=== PATIENT | female | born 1935 | race Native Hawaiian/Other Pacific Islander ===

== ENCOUNTER 2019-08-29 10:09 | Emergency (ER) | payer OTHER, SELFPAY ==
[2019-08-29 11:20] VITALS: BP 205/76; PULSE 60; RESP 18; TEMP 36.6; O2SAT 98
[2019-08-29 11:44] LABS: Prothrombin Time 11.1 SECONDS (10.1-12.7)
[2019-08-29 11:47] LABS: PTT Partial Thromboplastin Tim 34 SECONDS (26.4-36.2)
[2019-08-29 11:50] LABS: Alanine Aminotransferase 28 IU/L (<35); Albumin 4.6 g/dL (3.5-5.0); Albumin Globulin Ratio 1.3 (1.0-2.8); Alkaline Phosphatase 99 U/L (38-126); Aspartate Aminotransferase 37 IU/L (14-36); BUN Creatinine Ratio 21.7 (6-22); Bilirubin Total 0.5 mg/dL (0.2-1.3); Blood Urea Nitrogen 13 mg/dL (7-17); Calcium 9.6 mg/dL (8.4-10.2); Carbon Dioxide 27 mmol/L (22-32); Chloride 98 mmol/L (98-107); Estimated Glomerular Filt Rate > 60.0 mL/min (>60); Globulin 3.5 g/dL (1.7-4.1); Glucose 106 mg/dL (80-110); HEMOLYSIS < 15 (0-50); Lipase 43 U/L (23-300); Potassium 4.1 mmol/L (3.4-5.1); Sodium 135 mmol/L (137-145); Total Protein 8.1 g/dL (6.3-8.2)
[2019-08-29 12:00] LABS: Add Manual Diff / Slide Review NO; Basophils Absolute Auto 0 /uL (0-100); Basophils Percent Auto 0.8 % (0-2); Eosinophils Absolute Auto 100 /uL (0-450); Eosinophils Percent Auto 1.2 % (2-4); Hematocrit 37.7 % (36-46); Hemoglobin 12.3 g/dL (12.0-16.0); Lymphocytes Absolute Auto 2600 /uL (1100-4500); Lymphocytes Percent Auto 46.4 % (25-40); Mean Corpuscular HGB Conc 32.6 % (30-36); Mean Corpuscular Hemoglobin 28.4 PG (26-34); Mean Corpuscular Volume 86.9 fL (80-100); Monocytes Absolute Auto 300 /uL (0-900); Monocytes Percent Auto 6.1 % (3-14); Neutrophils Absolute Auto 2600 /uL (1500-7000); Neutrophils Percent Auto 45.5 % (50-75); Platelet Count 195 X10^3/uL (150-400); Red Blood Cell Count 4.34 X10^6/uL (4.0-5.2); Red Cell Distribution Width 12.9 % (11.6-14.8); White Blood Cell Count 5.6 X10^3/uL (4.5-11.0)
--- NOTE | 2019-08-29 12:06 | ED.ABDPAIN ---
HPI - Abdominal Pain <Ashley QuinteroDANETTE - Last Filed: 08/29/19 18:52> General Chief Complaint: Abdominal Pain Stated Complaint: pain in side,numbness on right side too Time Seen by Provider: 08/29/19 11:28 Source: patient Mode of arrival: Family Vehicle Limitations: no limitations History of Present Illness HPI narrative: 84-year-old female with history of diabetes, presents emergency department complaining of right hip pain and numbness for the past week. Her family states she lifted a 5 gal jug of water a week ago and then developed right hip pain that is a dull aching 6/10 and is worse with lying down. Patient reports a small amount of numbness to the lateral side of her right hip. She also reports occasional right intermittent hip spasms. She denies any trauma to the area. Patient denies nausea, vomiting, diarrhea, chest pain, shortness of breath, fevers, dizziness, leg pain, rash, other concerns. She denies any alleviating factors. Family states she was seen by her doctor a few days ago who thought she may have had a pulled muscle but is concern that no imaging was done. Patient denies any history of sciatica. Related Data Home Medications Medication Instructions Recorded Confirmed cholecalciferol (vitamin D3) 1,000 unit PO QDAY #0 08/14/17 [Vitamin D3] lisinopril 5 mg PO QDAY #0 08/14/17 metformin [Glucophage] 500 mg PO QDAY #0 08/14/17 metoprolol succinate [Toprol XL] 25 mg PO QPM #0 08/14/17 multivitamin [Multiple Vitamins] 1 tab PO QDAY #0 08/14/17 cetirizine 10 mg PO QDAYP PRN #0 10/16/17 Previous Rx's Medication Instructions Recorded meclizine 25 mg PO TIDP PRN #20 tab 10/16/17 ondansetron [Zofran ODT] 4 mg SUBLINGUAL Q6HP PRN #10 odt 10/16/17 methocarbamol 500 mg PO BEDTIME #10 tab 08/29/19 Allergies Allergy/AdvReac Type Severity Reaction Status Date / Time aspirin [ASPIRIN] Allergy Unknown RASH Verified 08/29/19 11:36 nalbuphine [From NUBAIN] Allergy Unknown CONVULSIONS Verified 08/29/19 11:36 Sulfa (Sulfonamide Allergy Unknown RASH Verified 08/29/19 11:36 Antibiotics) [SULFA (SULFONAMIDE ANTIBIOTICS)] Review of Systems <DANETTE Jacobson - Last Filed: 08/29/19 18:52> Review of Systems Narrative: REVIEW OF SYSTEMS: GENERAL: Denies fever, chills, malaise, or wt. loss. HENT: No head trauma, sore throat, or dysphagia. EYES: No loss of vision, double vision, eye pain, or irritation. CARDIOVASCULAR: No chest pain, palpitations, or orthopnea. RESPIRATORY: No shortness of breath or cough. GASTROINTESTINAL: Denies nausea, vomiting, or diarrhea, see HPI. GENITOURINARY: No flank pain, urinary incontinence, hesitancy, frequency, or dysuria. No vaginal discharge or dyspareunia. Denies concerns for STIs MUSCULOSKELETAL: Right hip pain and numbness, no weakness or trauma, see HPI. INTEGUMENTARY: No rash, lesions, or pruritus. NEURO: No numbness, tingling, memory loss, confusion, or headaches. PSYCH: No behavior or mood changes. Patient History <DANETTE Jacobson - Last Filed: 08/29/19 18:52> Medical History Diabetes (Acute) Social History Smoking Status: Never smoker alcohol intake frequency: 0-2 drinks per day Substance Use Type: does not use Exam <DANETTE Jacobson - Last Filed: 08/29/19 18:52> Narrative Exam Narrative: PHYSICAL EXAMINATION: GENERAL: Well groomed, alert, and cooperative. Answers questions promptly and appropriately. Vital signs noted. HENT: Normocephalic, atraumatic. Hearing intact. Oral mucosa is pink and moist. EYES: Conjunctiva pink, sclera white, no periorbital swelling. CARDIOVASCULAR: S1 and S2 sounds normal. Regular rate and rhythm, no murmurs, clicks, or bruits. No pedal edema. RESPIRATORY: Normal respiratory rate, trachea midline, airway patent. No stridor, nasal flaring or accessory muscle use. Lungs are clear in all pierce without wheeze, rhonchi, or crackles. GASTROINTESTINAL: Bowel sounds normoactive. Abdomen is soft and non-tender. No organomegaly, no palpable masses. GENITALURINARY: No flank tenderness. MUSCULOSKELETAL: Tenderness to top right iliac crest with deep palpation. Negative straight leg raise. No erythema, ecchymosis, or swelling. No spinal tenderness. Normal gait and coordination. Equal tone and mass bilaterally. EXTREMITIES: CMS intact, no pedal edema. SKIN: Warm, dry, soft, appropriate color for ethnicity. No lesions, rashes, or wounds. NEURO: Alert and Oriented X 3. Good coordination. No ataxia, or sensory deficits, or cognitive issues. PSYCH: Appropriate affect and mood. Initial Vital Signs Initial Vital Signs: Vital Signs Temperature 97.9 F 08/29/19 11:20 Pulse Rate 60 08/29/19 11:20 Respiratory Rate 18 08/29/19 11:20 Blood Pressure 205/76 H 08/29/19 11:20 Pulse Oximetry 98 08/29/19 11:20 <Yoli Keene DO - Last Filed: 08/29/19 20:20> Initial Vital Signs Initial Vital Signs: Vital Signs Temperature 97.9 F 08/29/19 11:20 Pulse Rate 60 08/29/19 11:20 Respiratory Rate 18 08/29/19 11:20 Blood Pressure 205/76 H 08/29/19 11:20 Pulse Oximetry 98 08/29/19 11:20 Course <DANETTE Jacobson - Last Filed: 08/29/19 18:52> Course Course Narrative: Patient was given a toradol injection in the emergency department which improved pain. Orders Ordered: ED Orders 08/29/19 11:21 Complete Blood Count AUTO DIFF Stat Comprehensive Metabolic Panel Stat Lipase Stat Partial Thromboplastin Time Stat Prothrombin Time INR Stat 08/29/19 11:30 Urinalysis and Microscopic Stat 08/29/19 11:36 EKG-12 Lead Stat 08/29/19 12:05 XR hip w pel if done RT 2V Stat Discontinued Medications Ketorolac Tromethamine (Toradol) 30 mg IM NOW ONE Stop: 08/29/19 13:24 Last Admin: 08/29/19 14:20 Dose: 30 mg Documented by: [facility] Consultations Consultation #1: Patient staffed with Dr. Keene. Vital Signs Vital signs: Vital Signs - 8 hr 08/29/19 13:30 Pulse Rate 58 L Respiratory Rate 18 Blood Pressure [Left Arm] 136/71 Pulse Oximetry 97 <Yoli Keene DO - Last Filed: 08/29/19 20:20> Orders Ordered: ED Orders 08/29/19 11:21 Complete Blood Count AUTO DIFF Stat Comprehensive Metabolic Panel Stat Lipase Stat Partial Thromboplastin Time Stat Prothrombin Time INR Stat 08/29/19 11:30 Urinalysis and Microscopic Stat 08/29/19 11:36 EKG-12 Lead Stat 08/29/19 12:05 XR hip w pel if done RT 2V Stat Discontinued Medications Ketorolac Tromethamine (Toradol) 30 mg IM NOW ONE Stop: 08/29/19 13:24 Last Admin: 08/29/19 14:20 Dose: 30 mg Documented by: THIAGO Vital Signs Vital signs: Vital Signs - 8 hr 08/29/19 13:30 Pulse Rate 58 L Respiratory Rate 18 Blood Pressure [Left Arm] 136/71 Pulse Oximetry 97 MDM - Abdominal Pain <DANETTE Jacobson - Last Filed: 08/29/19 18:52> Medical Records Attestation: I reviewed the patient's medical records. Lab Data Attestation: I reviewed the patient's lab results. Result diagrams: 08/29/19 11:21 08/29/19 11:21 Labs: Lab Results 08/29/19 08/29/19 08/29/19 Range/Units 11:21 11:21 11:21 WBC 5.6 (4.5-11.0) X10^3/uL RBC 4.34 (4.0-5.2) X10^6/uL Hgb 12.3 (12.0-16.0) g/dL Hct 37.7 (36-46) % MCV 86.9 (80-100) fL MCH 28.4 (26-34) PG MCHC 32.6 (30-36) % RDW 12.9 (11.6-14.8) % Plt Count 195 (150-400) X10^3/uL Neut % (Auto) 45.5 L (50-75) % Lymph % (Auto) 46.4 H (25-40) % Christian % (Auto) 6.1 (3-14) % Eos % (Auto) 1.2 L (2-4) % Baso % (Auto) 0.8 (0-2) % Neut # (Auto) 2600 (0180-7519) /uL Lymph # (Auto) 2600 (8168-0034) /uL Christian # (Auto) 300 (0-900) /uL Eos # (Auto) 100 (0-450) /uL Baso # (Auto) 0 (0-100) /uL PT 11.1 (10.1-12.7) SECONDS INR 1.0 (0.9-1.3) APTT 34 (26.4-36.2) SECONDS Sodium 135 L (137-145) mmol/L Potassium 4.1 (3.4-5.1) mmol/L Chloride 98 (98-107) mmol/L Carbon Dioxide 27 (22-32) mmol/L BUN 13 (7-17) mg/dL Creatinine 0.60 (0.52-1.04) mg/dL Estimated GFR > 60.0 (>60) mL/min BUN/Creatinine Ratio 21.7 (6-22) Glucose 106 (80-110) mg/dL Calcium 9.6 (8.4-10.2) mg/dL Total Bilirubin 0.5 (0.2-1.3) mg/dL AST 37 H (14-36) IU/L ALT 28 (<35) IU/L Alkaline Phosphatase 99 (38-126) U/L Total Protein 8.1 (6.3-8.2) g/dL Albumin 4.6 (3.5-5.0) g/dL Globulin 3.5 (1.7-4.1) g/dL Albumin/Globulin Ratio 1.3 (1.0-2.8) Lipase 43 (23-300) U/L Urine Color Urine Appearance Urine pH (4.5-8.0) Ur Specific [place] (1.000-1.035) Urine Protein (Negative) Urine Glucose (UA) (Negative) g/dL Urine Ketones (NEGATIVE) Urine Occult Blood (Negative) Urine Nitrate (Negative) Urine Bilirubin (NEGATIVE) Urine Urobilinogen (0.2) E.U./dL Ur Leukocyte Esterase (NEGATIVE) Urine RBC (0-5/HPF) Urine WBC (0-5/HPF) Ur Squamous Epith Cells (0-5/HPF) Urine Bacteria (None) Ur Culture Indicated? 08/29/19 Range/Units 11:30 WBC (4.5-11.0) X10^3/uL RBC (4.0-5.2) X10^6/uL Hgb (12.0-16.0) g/dL Hct (36-46) % MCV (80-100) fL MCH (26-34) PG MCHC (30-36) % RDW (11.6-14.8) % Plt Count (150-400) X10^3/uL Neut % (Auto) (50-75) % Lymph % (Auto) (25-40) % Christian % (Auto) (3-14) % Eos % (Auto) (2-4) % Baso % (Auto) (0-2) % Neut # (Auto) (6324-3321) /uL Lymph # (Auto) (3407-8220) /uL Christian # (Auto) (0-900) /uL Eos # (Auto) (0-450) /uL Baso # (Auto) (0-100) /uL PT (10.1-12.7) SECONDS INR (0.9-1.3) APTT (26.4-36.2) SECONDS Sodium (137-145) mmol/L Potassium (3.4-5.1) mmol/L Chloride (98-107) mmol/L Carbon Dioxide (22-32) mmol/L BUN (7-17) mg/dL Creatinine (0.52-1.04) mg/dL Estimated GFR (>60) mL/min BUN/Creatinine Ratio (6-22) Glucose (80-110) mg/dL Calcium (8.4-10.2) mg/dL Total Bilirubin (0.2-1.3) mg/dL AST (14-36) IU/L ALT (<35) IU/L Alkaline Phosphatase (38-126) U/L Total Protein (6.3-8.2) g/dL Albumin (3.5-5.0) g/dL Globulin (1.7-4.1) g/dL Albumin/Globulin Ratio (1.0-2.8) Lipase (23-300) U/L Urine Color Yellow Urine Appearance Clear Urine pH 6.5 (4.5-8.0) Ur Specific [place] <=1.005 (1.000-1.035) Urine Protein Negative (Negative) Urine Glucose (UA) Negative (Negative) g/dL Urine Ketones Negative (NEGATIVE) Urine Occult Blood Trace-intact (Negative) Urine Nitrate Negative (Negative) Urine Bilirubin Negative (NEGATIVE) Urine Urobilinogen 0.2 (0.2) E.U./dL Ur Leukocyte Esterase Negative (NEGATIVE) Urine RBC 1-5/hpf (0-5/HPF) Urine WBC 0-1/hpf (0-5/HPF) Ur Squamous Epith Cells 0-1 /hpf (0-5/HPF) Urine Bacteria Occasional (0-1) (None) Ur Culture Indicated? Cult not indicated Point of care testing: Urine Dip Bedside Urine Glucose Negative Bedside Urine Bilirubin - Negative Bedside Urine Ketone - Negative Urine Specific [place] 1.010 Bedside Urine Occult Blood +/- Bedside Urine pH 6.0 Bedside Urine Protein - Negative Bedside Urine Urobilinogen - Negative Bedside Urine Nitrite - Negative Bedside Urine Leukocytes - Negative Esterase Imaging Data Hip Xray: Radiologist's impression: [address] [address] XRay Report Signed Patient: Nadia Aldridge CMR#: [id number] : [id number]:[id number] Age/Sex: 84 / FDate of Service: 08/29/19 Loc: ED Accession Number: [id number] Procedure: XR hip w pel if done RT 2V Ordering Provider: Ashley Quintero PROCEDURE: XR HIP W PEL IF DONE RT 2V INDICATIONS: R hip pain TECHNIQUE: AP pelvis with lateral view(s) of the right hip(s). COMPARISON: None. FINDINGS: Bones: No fractures or dislocations. Pelvic ring appears intact. No suspicious bony lesions. The hip joints appear well-preserved. Age-appropriate lower lumbar spine degenerative changes are noted. Soft tissues: The visualized bowel gas pattern is normal. No suspicious soft tissue calcifications. IMPRESSION: Normal plain films for age. Dictated by: Parker Olivas M.D. on 08/29/2019 at 11:40 Approved by: Parker Olivas M.D. on 08/29/2019 at 11:41 ECG Data Interpretation: Sinus rhythm, rate 56 him appearance of a wound 76, QTC 447. No ST depression or ST elevation no T-wave abnormality. No ectopy. Questionable RRB in V1 and V2. MDM Narrative Medical decision making narrative: This is an 84-year-old female complaining of right hip pain for the past week, she was recently seen by PCP and diagnosed with muscle strain. Differential includes abdominal etiology, shingles, hip fracture, or hip strain. Most likely hip strain with possible pinched nerve or nerve irritation due to description of pain, reproducible pain on palpation. Less likely abdominal etiology or cardiac etiology due to normal EKG and normal labs. Less likely hip fracture due to negative x-ray and patient's ability to bear weight on the leg. Less likely shingles due to lack of rash or description of tingling. Patient was encouraged to follow up with her primary care provider in the next week for re-evaluation if symptoms continue. She was given a dose of Toradol which helped to improve pain in the emergency department. She was also given a low-dose muscle relaxer as she reports the pain is occasionally spasming. Patient remained hemodynamically stable throughout her stay in the emergency department, she was discharged with family with no further questions at that time. <Yoli Keene, DO - Last Filed: 08/29/19 20:20> Lab Data Labs: Lab Results 08/29/19 08/29/19 08/29/19 Range/Units 11:21 11:21 11:21 WBC 5.6 (4.5-11.0) X10^3/uL RBC 4.34 (4.0-5.2) X10^6/uL Hgb 12.3 (12.0-16.0) g/dL Hct 37.7 (36-46) % MCV 86.9 (80-100) fL MCH 28.4 (26-34) PG MCHC 32.6 (30-36) % RDW 12.9 (11.6-14.8) % Plt Count 195 (150-400) X10^3/uL Neut % (Auto) 45.5 L (50-75) % Lymph % (Auto) 46.4 H (25-40) % Christian % (Auto) 6.1 (3-14) % Eos % (Auto) 1.2 L (2-4) % Baso % (Auto) 0.8 (0-2) % Neut # (Auto) 2600 (2066-3282) /uL Lymph # (Auto) 2600 (6656-0564) /uL Christian # (Auto) 300 (0-900) /uL Eos # (Auto) 100 (0-450) /uL Baso # (Auto) 0 (0-100) /uL PT 11.1 (10.1-12.7) SECONDS INR 1.0 (0.9-1.3) APTT 34 (26.4-36.2) SECONDS Sodium 135 L (137-145) mmol/L Potassium 4.1 (3.4-5.1) mmol/L Chloride 98 (98-107) mmol/L Carbon Dioxide 27 (22-32) mmol/L BUN 13 (7-17) mg/dL Creatinine 0.60 (0.52-1.04) mg/dL Estimated GFR > 60.0 (>60) mL/min BUN/Creatinine Ratio 21.7 (6-22) Glucose 106 (80-110) mg/dL Calcium 9.6 (8.4-10.2) mg/dL Total Bilirubin 0.5 (0.2-1.3) mg/dL AST 37 H (14-36) IU/L ALT 28 (<35) IU/L Alkaline Phosphatase 99 (38-126) U/L Total Protein 8.1 (6.3-8.2) g/dL Albumin 4.6 (3.5-5.0) g/dL Globulin 3.5 (1.7-4.1) g/dL Albumin/Globulin Ratio 1.3 (1.0-2.8) Lipase 43 (23-300) U/L Urine Color Urine Appearance Urine pH (4.5-8.0) Ur Specific [place] (1.000-1.035) Urine Protein (Negative) Urine Glucose (UA) (Negative) g/dL Urine Ketones (NEGATIVE) Urine Occult Blood (Negative) Urine Nitrate (Negative) Urine Bilirubin (NEGATIVE) Urine Urobilinogen (0.2) E.U./dL Ur Leukocyte Esterase (NEGATIVE) Urine RBC (0-5/HPF) Urine WBC (0-5/HPF) Ur Squamous Epith Cells (0-5/HPF) Urine Bacteria (None) Ur Culture Indicated? 08/29/19 Range/Units 11:30 WBC (4.5-11.0) X10^3/uL RBC (4.0-5.2) X10^6/uL Hgb (12.0-16.0) g/dL Hct (36-46) % MCV (80-100) fL MCH (26-34) PG MCHC (30-36) % RDW (11.6-14.8) % Plt Count (150-400) X10^3/uL Neut % (Auto) (50-75) % Lymph % (Auto) (25-40) % Christian % (Auto) (3-14) % Eos % (Auto) (2-4) % Baso % (Auto) (0-2) % Neut # (Auto) (7788-2887) /uL Lymph # (Auto) (6569-2710) /uL Christian # (Auto) (0-900) /uL Eos # (Auto) (0-450) /uL Baso # (Auto) (0-100) /uL PT (10.1-12.7) SECONDS INR (0.9-1.3) APTT (26.4-36.2) SECONDS Sodium (137-145) mmol/L Potassium (3.4-5.1) mmol/L Chloride (98-107) mmol/L Carbon Dioxide (22-32) mmol/L BUN (7-17) mg/dL Creatinine (0.52-1.04) mg/dL Estimated GFR (>60) mL/min BUN/Creatinine Ratio (6-22) Glucose (80-110) mg/dL Calcium (8.4-10.2) mg/dL Total Bilirubin (0.2-1.3) mg/dL AST (14-36) IU/L ALT (<35) IU/L Alkaline Phosphatase (38-126) U/L Total Protein (6.3-8.2) g/dL Albumin (3.5-5.0) g/dL Globulin (1.7-4.1) g/dL Albumin/Globulin Ratio (1.0-2.8) Lipase (23-300) U/L Urine Color Yellow Urine Appearance Clear Urine pH 6.5 (4.5-8.0) Ur Specific [place] <=1.005 (1.000-1.035) Urine Protein Negative (Negative) Urine Glucose (UA) Negative (Negative) g/dL Urine Ketones Negative (NEGATIVE) Urine Occult Blood Trace-intact (Negative) Urine Nitrate Negative (Negative) Urine Bilirubin Negative (NEGATIVE) Urine Urobilinogen 0.2 (0.2) E.U./dL Ur Leukocyte Esterase Negative (NEGATIVE) Urine RBC 1-5/hpf (0-5/HPF) Urine WBC 0-1/hpf (0-5/HPF) Ur Squamous Epith Cells 0-1 /hpf (0-5/HPF) Urine Bacteria Occasional (0-1) (None) Ur Culture Indicated? Cult not indicated Point of care testing: Urine Dip Bedside Urine Glucose Negative Bedside Urine Bilirubin - Negative Bedside Urine Ketone - Negative Urine Specific [place] 1.010 Bedside Urine Occult Blood +/- Bedside Urine pH 6.0 Bedside Urine Protein - Negative Bedside Urine Urobilinogen - Negative Bedside Urine Nitrite - Negative Bedside Urine Leukocytes - Negative Esterase ECG Data Attestation: I personally reviewed and interpreted this ECG as follows: Prior ECG tracings: available for review Interpretation: Sinus bradycardia rate of 56 P are 176 QRS of 97 QTC of 447. RSR in V1 V2. No acute changes. Patient has prior EKG from 10/16/2017 which is similar. Discharge Plan Departure Patient Disposition: Home Clinical Impression: Acute hip pain Qualifiers: Laterality: right Qualified Code(s): M25.551 - Pain in right hip Discharge Date/Time: 08/29/19 14:23 Instructions: DI for Sciatica, DI for Hip Pain Activity Restrictions/Additional Instructions: Thank you for entrusting me with your care today. As discussed, your x-rays are negative for any fractures, your lab work is negative for any acute findings. Please follow-up with your primary care provider for re-evaluation of your hip pain and continue to monitor your sodium level as it was a little low today. You can take Tylenol or ibuprofen for pain It is possible your pain may be caused from a pinched nerve and or muscle strain. I have prescribed you a muscle relaxer, this medication can make you drowsy. Do not drive while using this medication or perform activities that require mental alertness. Return to the emergency department for new or worsening symptoms such as chest pain, high fevers, uncontrollable vomiting, or other concerns. Prescriptions: New methocarbamol 500 mg tablet 500 mg PO BEDTIME Qty: 10 RF: 0 No Action metformin [Glucophage] 500 MG tablet 500 mg PO QDAY Qty: 0 RF: 0 multivitamin [Multiple Vitamins] 1 EACH tablet 1 tab PO QDAY Qty: 0 RF: 0 lisinopril 5 MG tablet 5 mg PO QDAY Qty: 0 RF: 0 metoprolol succinate [Toprol XL] 25 MG tablet extended release 24 hr 25 mg PO QPM Qty: 0 RF: 0 cholecalciferol (vitamin D3) [Vitamin D3] 1,000 UNIT tablet 1,000 unit PO QDAY Qty: 0 RF: 0 cetirizine 10 MG tablet 10 mg PO QDAYP PRNQty: 0 RF: 0 meclizine 25 MG tablet 25 mg PO TIDP PRNQty: 20 RF: 0 ondansetron [Zofran ODT] 4 MG tablet,disintegrating 4 mg Sublingual Q6HP PRNQty: 10 RF: 0 Referrals: Miroslava Ramires MD [Primary Care Provider] -
[2019-08-29 13:30] VITALS: BP 136/71; PULSE 58; RESP 18; O2SAT 97
[2019-08-29 13:49] LABS: Appearance Urine UA CLEAR; Bilirubin Urine UA NEGATIVE (NEGATIVE); Color Urine UA YELLOW; Glucose Urine UA NEGATIVE (Negative); Ketones Urine UA NEGATIVE (NEGATIVE); Leukocyte Esterase Urine UA NEGATIVE (NEGATIVE); Nitrite Urine UA NEGATIVE (Negative); Occult Blood Urine UA TRACE-INTACT (Negative); Protein Urine UA NEGATIVE (Negative); Specific Gravity Urine UA <=1.005 (1.000-1.035); Urobilinogen Urine UA 0.2 E.U./dL (0.2)
[2019-08-29 13:58] LABS: pH Urine UA 6.5 (4.5-8.0)
[2019-08-29 14:11] LABS: Bacteria Urine Occasional (0-1); Culture Indicated Urine Cult Not Indicated; RBC Urine 1-5/HPF (0-5/HPF); Squamous Epithelial Cell Urine 0-1 /HPF (0-5/HPF); WBC Urine 0-1/HPF (0-5/HPF)
[2019-08-29] MEDS: KETOROLAC 60 MG/2 ML VIAL 30 MG IM (14:20)
== END 2019-08-29 14:23 | disposition home or self-care (01) ==
PROVIDERS: Emergency Provider Nurse Practitioner; PCP Internal Medicine
DX: M25.551 Pain in right hip (principal); R10.9 Unspecified abdominal pain; R00.1 Bradycardia, unspecified; E11.9 Type 2 diabetes mellitus without complications
CPT/HCPCS: 73502; 80053; 81001; 81003; 83690; 85025; 85610; 85730; 93005; 96372; 99282; 99285; J1885

== ENCOUNTER → 2020-11-05 10:49 | Outpatient (CLI) | payer OTHER, MEDICAID, SELFPAY ==
[2020-11-05 11:34] LABS: Add Manual Diff / Slide Review NO; Basophils Absolute Auto 0 /uL (0-100); Eosinophils Absolute Auto 200 /uL (0-450); Eosinophils Percent Auto 3.1 % (2-4); Hematocrit 36.2 % (36-46); Hemoglobin 11.9 g/dL (12.0-16.0); Lymphocytes Absolute Auto 2300 /uL (1100-4500); Mean Corpuscular Hemoglobin 28.5 PG (26-34); Mean Corpuscular Volume 86.5 fL (80-100); Monocytes Absolute Auto 300 /uL (0-900); Monocytes Percent Auto 6.6 % (3-14); Neutrophils Absolute Auto 2100 /uL (1500-7000); Neutrophils Percent Auto 42.3 % (50-75); Platelet Count 187 X10^3/uL (150-400); Red Blood Cell Count 4.18 X10^6/uL (4.0-5.2); White Blood Cell Count 4.9 X10^3/uL (4.5-11.0)
[2020-11-05 11:44] LABS: Alanine Aminotransferase 24 IU/L (<35); Albumin 4.2 g/dL (3.5-5.0); Albumin Globulin Ratio 1.2 (1.0-2.8); Alkaline Phosphatase 84 U/L (38-126); Aspartate Aminotransferase 31 IU/L (14-36); BUN Creatinine Ratio 25.8 (6-22); Bilirubin Total 0.4 mg/dL (0.2-1.3); Blood Urea Nitrogen 23 mg/dL (7-17); Calcium 9.4 mg/dL (8.4-10.2); Carbon Dioxide 31 mmol/L (22-32); Chloride 103 mmol/L (98-107); Estimated Glomerular Filt Rate > 60.0 mL/min (>60); Globulin 3.6 g/dL (1.7-4.1); Glucose 111 mg/dL (80-110); HEMOLYSIS < 15 (0-50); Potassium 4.5 mmol/L (3.4-5.1); Sodium 134 mmol/L (137-145); Total Protein 7.8 g/dL (6.3-8.2)
[2020-11-05 12:18] LABS: Ferritin 213 ng/mL (11-264)
== END ==
PROVIDERS: Referring Provider Internal Medicine; Visit Provider Internal Medicine
DX: E83.110 Hereditary hemochromatosis (principal)
CPT/HCPCS: 36415; 80053; 82728; 85025

== ENCOUNTER 2021-04-01 08:21 | Observation (INO) | payer OTHER, MEDICAID, SELFPAY ==
[2021-04-01] VITALS (34 sets, daily range): BP systolic 137–221; BP diastolic 65–96; PULSE 54–72; RESP 13–47; TEMP 36.4; O2SAT 80–100; BMI 28.6
--- NOTE | 2021-04-01 09:58 | ED_ITS ---
HPI - Neck Pain/Injury General Chief Complaint: Neck Pain/Injury Stated Complaint: so much pain, back of neck radiating to shoulders Time Seen by Provider: 04/01/21 09:58 Source: patient and family Mode of arrival: Ambulatory Limitations: no limitations History of Present Illness HPI Narrative: This an 85-year-old female comes emergency department with complaint of neck pain that developed Thursday and has increased over the last 2 days. Patient states she is quite uncomfortable trying to flex or extend her neck. Rotation is still quite uncomfortable but more doable. Patient denies any recent mechanical falls, trauma or injuries. She does not recall member any event that caused her pain. She denies any radiation her chest, lower back or extremities she denies any headache. Patient states that sort of mid cervical spine and into both shoulders. Patient states movement does seem to exacerbate it. She denies any fevers or chills. She denies any shortness of breath. No nausea or vomiting. No diaphoresis. She denies any diarrhea constipation. No black or bloody stools. No urinary symptoms. No rashes or skin changes. Patient has not had any numbness, tingling or weakness down her extremities. She does have a history of hypertension, dyslipidemia diabetes as well as hemochromatosis. She has had her right ovary removed as well as fallopian tubes. She is allergic to aspirin but states she can take a baby aspirin without issue as well as a nubain and sulfa. She states she has had oral narcotics without issue in the past. She is accompanied by her daughter. Patient has not had her am lisinopril or metoprolol today. Related Data Home Medications Medication Instructions Recorded Confirmed cholecalciferol (vitamin D3) 1,000 unit PO QDAY #0 08/14/17 04/01/21 [Vitamin D3] lisinopril 5 mg PO QDAY #0 08/14/17 04/01/21 metformin [Glucophage] 500 mg PO QDAY #0 08/14/17 04/01/21 metoprolol succinate [Toprol XL] 25 mg PO QPM #0 08/14/17 04/01/21 multivitamin [Multiple Vitamins] 1 tab PO QDAY #0 08/14/17 04/01/21 cetirizine 10 mg PO QDAYP PRN #0 10/16/17 04/01/21 omeprazole 20 mg PO DAILY 11/14/20 04/01/21 atorvastatin 10 mg PO BEDTIME 04/01/21 04/01/21 Allergies Allergy/AdvReac Type Severity Reaction Status Date / Time aspirin [ASPIRIN] Allergy Unknown RASH Verified 08/29/19 11:36 nalbuphine [From NUBAIN] Allergy Unknown CONVULSIONS Verified 08/29/19 11:36 Sulfa (Sulfonamide Allergy Unknown RASH Verified 08/29/19 11:36 Antibiotics) [SULFA (SULFONAMIDE ANTIBIOTICS)] Review of Systems Review of Systems ROS Unobtainable: All systems reviewed & are unremarkable except as noted in HPI and below Patient History Medical History (Updated 04/01/21 @ 20:17 by Yoli Keene DO) Diabetes 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 HEENT: Atraumatic, pupils are equal round reactive to light, extraocular movements are intact, nares are clear, throat is clear without any exudates, erythema, tonsillar enlargement or uvular deviation, patient has no cervical or upper thoracic spinal tenderness. Patient is uncomfortable trying to flex or extend her neck but can rotate with less discomfort. Patient does have paraspinal tightness and muscle tension bilaterally. HEART: Regular rate and rhythm without murmur, clicks, rubs. No carotid bruits, pulses are equal in upper extremities, 2+ radial pulses bilaterally. LUNGS:Lungs clear to auscultation, no wheezes, rales, crackles, chest moves symmetrically ABD:bowel sounds normal, soft, non-tender, no guarding, rebound, rigidity, no masses noted, no hepatosplenomegaly :No CVA tenderness MSCL: Non-tender, no muscle atrophy, muscles strength 5/5 upper and lower extremities, full range of motion, normal gait NEURO:CN 2-12 intact, sensation normal, reflexes 2/4 upper extremities SKIN: No rashes, skin changes or other changes appreciated. Initial Vital Signs Initial Vital Signs: Vital Signs Temperature 97.6 F 04/01/21 08:46 Pulse Rate 68 04/01/21 08:46 Respiratory Rate 18 04/01/21 08:46 Blood Pressure 214/87 H 04/01/21 08:46 Pulse Oximetry 100 04/01/21 08:46 Scores GCS Ashley coma scale eye opening: Spontaneous Ashley coma scale verbal response: Orientated Ashley coma scale motor response: Obey commands [place] coma scale total score: 15 Course Orders Ordered: ED Orders 04/01/21 12:30 Complete Blood Count AUTO DIFF Stat Comprehensive Metabolic Panel Stat NT-proBNP (BNP-Adult 18+) Stat Troponin & CK Cardiac Panel Stat 04/01/21 15:51 XR chest 1V Stat 04/01/21 16:08 Urine Microscopic Stat Acetaminophen (Acetaminophen 325 Mg Tablet) 650 mg PO Q6HR PRN PRN Reason: Fever/Mild Pain (1-3) Dextrose (Dextrose 50 % In Water 25 Gm/50 Ml Syringe) 25 gm IV PRN PRN PRN Reason: Hypoglycemia Enoxaparin Sodium (Enoxaparin 40 Mg/0.4 Ml Syringe) 40 mg SUBCUT DAILY TIFFANY Insulin Human Lispro (Insulin Lispro 100 Unit/Ml 3ml Vial) 0 unit SUBCUT ACHS TIFFANY; Protocol Lisinopril (Lisinopril 5 Mg Tablet) 5 mg PO DAILY TIFFANY Metoprolol Succinate (Metoprolol Er 25 Mg Tablet) 25 mg PO DAILY TIFFANY Ondansetron HCl (Ondansetron 4 Mg/2 Ml Inj) 4 mg IV Q8HR PRN PRN Reason: Nausea And Vomiting Ondansetron HCl (Ondansetron 4 Mg Odt) 4 mg SL Q4HR PRN PRN Reason: Nausea Prednisone (Prednisone 20 Mg Tablet) 40 mg PO DAILY TIFFANY Discontinued Medications Sodium Chloride (Normal Saline 0.9%) 1,000 mls @ 1,000 mls/hr IV BOLUS ONE Stop: 04/01/21 15:48 Last Infusion: 04/01/21 15:56 Dose: 0 mls/hr Documented by: Admin: 04/01/21 15:01 Dose: 1,000 mls/hr Documented by: SHANNA Ketorolac Tromethamine (Ketorolac 30 Mg/Ml Vial) 15 mg IV NOW ONE Stop: 04/01/21 10:42 Last Admin: 04/01/21 13:14 Dose: Not Given Documented by: LISE Ketorolac Tromethamine (Ketorolac 30 Mg/Ml Vial) 30 mg IM NOW ONE Stop: 04/01/21 11:59 Last Admin: 04/01/21 12:39 Dose: Not Given Documented by: SHANNA Labetalol HCl (Labetalol 20 Mg/4 Ml Syringe) 10 mg IV NOW ONE Stop: 04/01/21 17:08 Last Admin: 04/01/21 19:30 Dose: Not Given Documented by: OSIEL Lidocaine (Lidocaine Patch 1 Each Adh..Patch) 1 each TOP NOW ONE Stop: 04/01/21 19:34 Lisinopril (Lisinopril 5 Mg Tablet) 5 mg PO NOW ONE Stop: 04/01/21 10:42 Last Admin: 04/01/21 11:40 Dose: 5 mg Documented by: SHANNA Metoprolol Tartrate (Metoprolol Ir 25 Mg Tablet) 25 mg PO NOW ONE Stop: 04/01/21 10:42 Last Admin: 04/01/21 11:40 Dose: 25 mg Documented by: SHANNA Metoprolol Tartrate (Metoprolol Tartrate 5 Mg/5 Ml Inj) 5 mg IV Q5M TIFFANY Stop: 04/01/21 15:56 Last Admin: 04/01/21 16:26 Dose: 5 mg Documented by: Admin: 04/01/21 16:10 Dose: 5 mg Documented by: Admin: 04/01/21 16:03 Dose: 5 mg Documented by: SHANNA Ondansetron HCl (Ondansetron 4 Mg/2 Ml Inj) 4 mg IV NOW ONE Stop: 04/01/21 15:14 Last Admin: 04/01/21 15:23 Dose: 4 mg Documented by: SHANNA Oxycodone/Acetaminophen (Oxycodone/Acetaminophen 5/325 Tablet) 2 tab PO NOW ONE Stop: 04/01/21 13:24 Last Admin: 04/01/21 13:59 Dose: 2 tab Documented by: LISE Prednisone (Prednisone 20 Mg Tablet) 60 mg PO NOW ONE Stop: 04/01/21 13:25 Last Admin: 04/01/21 13:59 Dose: 60 mg Documented by: LISE Reevaluation(s) Reevaluation #1: Patient feeling dizzy after ambulating to bathroom prior to discharge. Patient did have oxycodone. She was able to ambulate safely. But feels quite dizzy. Patient initially had Toradol ordered but thought she may have an allergic reaction. She does take ibuprofen without issue and Tylenol typically for pain but have been adequate. Discussed with patient building there was some difficulty getting IV access earlier we are attempting to give IV IM morphine but changed oxycodone p.o. daughter states she typically is sensitive to pain medications. Troponin, chest x-ray and BNP were added on whic h are all negative and patient still quite hypertensive. Metoprolol was ordered. Time: 14:44 Consultations Consultation #1: Dr. Morrison- will see patient in department. Doesn't recommend huge decrease in BP and would recommend doubling oral metoprolol as outpatient. Time: 17:08 Vital Signs Vital signs: Vital Signs - 8 hr 04/01/21 12:30 04/01/21 13:00 04/01/21 13:03 Pulse Rate 59 L 57 L 58 L Respiratory Rate 18 Blood Pressure 209/74 H Pulse Oximetry 100 99 99 04/01/21 13:30 04/01/21 14:00 04/01/21 14:27 Pulse Rate 59 L 59 L 65 Respiratory Rate Blood Pressure 197/80 H Pulse Oximetry 99 99 98 04/01/21 15:04 04/01/21 15:30 04/01/21 15:35 Pulse Rate 69 66 66 Respiratory Rate 21 45 H 47 H Blood Pressure 221/96 H Pulse Oximetry 97 98 95 04/01/21 15:37 04/01/21 16:00 04/01/21 16:08 Pulse Rate 67 62 61 Respiratory Rate 47 H 37 H 25 H Blood Pressure 221/96 H 221/91 H Pulse Oximetry 95 95 93 04/01/21 16:14 04/01/21 16:24 04/01/21 16:30 Pulse Rate 59 L 58 L 57 L Respiratory Rate 25 H 20 23 Blood Pressure 207/91 H 207/80 H Pulse Oximetry 95 93 95 04/01/21 16:32 04/01/21 16:45 04/01/21 17:00 Pulse Rate 57 L 57 L 55 L Respiratory Rate 22 19 21 Blood Pressure 179/76 H 171/74 H Pulse Oximetry 94 94 94 04/01/21 17:30 04/01/21 18:00 04/01/21 18:10 Pulse Rate 55 L 54 L 58 L Respiratory Rate 25 H 17 32 H Blood Pressure 200/83 H Pulse Oximetry 93 94 97 04/01/21 18:13 Pulse Rate 60 Respiratory Rate 30 H Blood Pressure 195/84 H Pulse Oximetry 97 MDM - Neck Pain/Injury Lab Data Attestation: I reviewed the patient's lab results. Result diagrams: 04/01/21 12:30 04/01/21 12:30 Labs: Lab Results 04/01/21 04/01/21 04/01/21 Range/Units 12:30 12:30 12:30 WBC 7.7 (4.5-11.0) X10^3/uL RBC 3.92 L (4.0-5.2) X10^6/uL Hgb 11.2 L (12.0-16.0) g/dL Hct 33.5 L (36-46) % MCV 85.4 (80-100) fL MCH 28.6 (26-34) PG MCHC 33.5 (30-36) % RDW 12.8 (11.6-14.8) % Plt Count 203 (150-400) X10^3/uL Neut % (Auto) 70.7 (50-75) % Lymph % (Auto) 21.6 L (25-40) % [place] % (Auto) 7.1 (3-14) % Eos % (Auto) 0.2 L (2-4) % Baso % (Auto) 0.4 (0-2) % Neut # (Auto) 5400 (0317-6586) /uL Lymph # (Auto) 1700 (5420-6453) /uL [place] # (Auto) 500 (0-900) /uL Eos # (Auto) 0 (0-450) /uL Baso # (Auto) 0 (0-100) /uL Sodium 130 L (137-145) mmol/L Potassium 4.2 (3.4-5.1) mmol/L Chloride 98 (98-107) mmol/L Carbon Dioxide 26 (22-32) mmol/L BUN 11 (7-17) mg/dL Creatinine 0.52 (0.52-1.04) mg/dL Estimated GFR > 60.0 (>60) mL/min BUN/Creatinine Ratio 21.2 (6-22) Glucose 142 H (80-110) mg/dL Calcium 9.4 (8.4-10.2) mg/dL Total Bilirubin 0.5 (0.2-1.3) mg/dL AST 38 H (14-36) IU/L ALT 43 H (<35) IU/L Alkaline Phosphatase 152 H (38-126) U/L Total Creatine Kinase 64 (30-135) U/L CK-MB (CK-2) TNP CK-MB (CK-2) Rel Index TNP Troponin I < 0.012 (0.01-0.034) ng/mL NT-Pro-B Natriuret Pep (<450) pg/mL Total Protein 7.4 (6.3-8.2) g/dL Albumin 3.9 (3.5-5.0) g/dL Globulin 3.5 (1.7-4.1) g/dL Albumin/Globulin Ratio 1.1 (1.0-2.8) // Range/Units 12:30 WBC (4.5-11.0) X10^3/uL RBC (4.0-5.2) X10^6/uL Hgb (12.0-16.0) g/dL Hct (36-46) % MCV (80-100) fL MCH (26-34) PG MCHC (30-36) % RDW (11.6-14.8) % Plt Count (150-400) X10^3/uL Neut % (Auto) (50-75) % Lymph % (Auto) (25-40) % [place] % (Auto) (3-14) % Eos % (Auto) (2-4) % Baso % (Auto) (0-2) % Neut # (Auto) (1571-1713) /uL Lymph # (Auto) (5682-2541) /uL [place] # (Auto) (0-900) /uL Eos # (Auto) (0-450) /uL Baso # (Auto) (0-100) /uL Sodium (137-145) mmol/L Potassium (3.4-5.1) mmol/L Chloride (98-107) mmol/L Carbon Dioxide (22-32) mmol/L BUN (7-17) mg/dL Creatinine (0.52-1.04) mg/dL Estimated GFR (>60) mL/min BUN/Creatinine Ratio (6-22) Glucose (80-110) mg/dL Calcium (8.4-10.2) mg/dL Total Bilirubin (0.2-1.3) mg/dL AST (14-36) IU/L ALT (<35) IU/L Alkaline Phosphatase (38-126) U/L Total Creatine Kinase (30-135) U/L CK-MB (CK-2) CK-MB (CK-2) Rel Index Troponin I (0.01-0.034) ng/mL NT-Pro-B Natriuret Pep 256 (<450) pg/mL Total Protein (6.3-8.2) g/dL Albumin (3.5-5.0) g/dL Globulin (1.7-4.1) g/dL Albumin/Globulin Ratio (1.0-2.8) Urine Dip Bedside Urine Glucose Negative Bedside Urine Bilirubin - Negative Bedside Urine Ketone - Negative Urine Specific [place] 1.015 Bedside Urine Occult Blood + Bedside Urine pH 6 Bedside Urine Protein - Negative Bedside Urine Urobilinogen - Negative Bedside Urine Nitrite - Negative Bedside Urine Leukocytes - Negative Esterase Imaging Data CT scan - head: Radiologist's Impression: [address] [id number] Scan ReportSigned Patient: Nadia Aldridge CMR#: [id number]: [id number]:[id number]/Sex: 85 / FDate of Service: 04/01/21Loc: EDAccession Number: [id number] Procedure: CT head/brain wo con Ordering Provider: Yoli Keene D.O. PROCEDURE: CT HEAD/BRAIN WO CON INDICATIONS: neck pain, hx hemachromatosis TECHNIQUE: Noncontrast 4.5 mm thick angled axial sections acquired from the foramen magnum to the vertex, with coronal and sagittal reformats. For radiation dose reduction, the following was used: automated exposure control, adjustment of mA and/or kV according to patient size. COMPARISON: [facility], CT, HEAD WITHOUT CONTRAST, 10/16/2017, 12:08. FINDINGS: Image quality: Excellent. CSF spaces: Basal cisterns are patent. No extra-axial fluid collections. The ventricles are symmetric in size and shape. Brain: No intracranial bleeds or masses. There is cerebral volume loss for age, with resultant ventricular and sulcal prominence. There are periventricular and deep white matter chronic small vessel ischemic changes. There is intracranial internal carotid artery atherosclerosis. Skull and face: Calvarium and visualized facial bones appear intact, without suspicious lesions. Sinuses: Visualized sinuses and mastoids are clear. IMPRESSION: Unremarkable head CT for patient age. No evidence of acute stroke, hemorrhage, or mass. Dictated by: Willian Billingsley M.D. on 04/01/2021 at 11:16 Approved by: Willian Billingsley M.D. on 04/01/2021 at 11:17 CT - cervical spine: Radiologist's Impression: [address] [id number] Scan ReportSigned Patient: Nadia Aldridge CMR#: [id number]: [id number]:[id number]/Sex: 85 / FDate of Service: 04/01/21Loc: EDAccession Number: [id number] Procedure: CT cervical spine wo con Ordering Provider: Yoli Keene D.O. PROCEDURE: CT CERVICAL SPINE WO CON INDICATIONS: neck pain TECHNIQUE: Noncontrast 3 mm thick sections acquired from the skull base to the T4 level. Sagittal and coronal reformats were then constructed. For radiation dose reduction, the following was used: automated exposure control, adjustment of mA and/or kV according to patient size. COMPARISON: None. FINDINGS: Image quality: Excellent. Bones: No fractures or dislocations. Visualized superior ribs are intact. Mild cervical spondylitic change. There is moderate posterior disc bulge or disc protrusion at C5-C6 which results in a degree of canal stenosis. There is disc bulge at C4-C5. There is bilateral uncovertebral joint hypertrophy at C4-C5 and C5-C6 resulting in bilateral bony foraminal narrowing. Soft tissues: Prevertebral soft tissues are normal in thickness. No paravertebral hematomas. No apical pneumothoraces. A thyroid goiter is present. IMPRESSION: 1. No evidence acute cervical fracture or dislocation. 2. Cervical spondylosis with canal stenosis at C5-C6 and bilateral foraminal narrowing at C4-C5 and C5-C6. Dictated by: Willian Billingsley M.D. on 04/01/2021 at 11:12 Approved by: Willian Billingsley M.D. on 04/01/2021 at 11:15 Chest x-ray: Radiologist's Impression: [address] [id number] ReportSigned Patient: Nadia Aldridge CMR#: [id number]: [id number]:[id number]/Sex: 85 / FDate of Service: 04/01/21Loc: EDAccession Number: [id number] Procedure: XR chest 1V Ordering Provider: Yoli Keene D.O. PROCEDURE: XR CHEST 1V INDICATIONS: dizzy, hypertension TECHNIQUE: One view of the chest was acquired. COMPARISON: [facility], CHEST 1 VIEW, 08/14/2017, 12:30. FINDINGS: Surgical changes and devices: None. Lungs and pleura: Scattered subsegmental scarring and/or atelectasis. No acute consolidation. No pleural effusions or pneumothorax. Mediastinum: Mediastinal contours appear normal. Heart size is normal. Bones and chest wall: No suspicious bony lesions. Overlying soft tissues appear unremarkable. IMPRESSION: No acute disease. Dictated by: Naveen Pike M.D. on 04/01/2021 at 16:31 Approved by: Naveen Pike M.D. on 04/01/2021 at 16:31 ECG Data Attestation: I personally reviewed and interpreted this ECG as follows: Prior ECG tracings: available for review Interpretation: Normal sinus rhythm rate of 67 NE 168 QRS 88 QTC of 429. No acute ST elevation depression noted. Appears similar to 08/29/2019 EKG. [facility] Narrative Medical decision making narrative: 85-year-old female comes in with acute cervical tenderness with no recent trauma or injury. Patient does not have any neuro changes on exam and does not have any subjective symptoms of a kidney red flag symptoms necessitating MRI. Patient was noted to be quite hypertensive on arrival so CT head was included which was negative for acute bleed. Patient's initial labs do not show major abnormalities except for some mildly elevated liver enzymes. Patient does have known hemochromatosis. Patient initially had some pain medications ordered but these were deferred secondary to possible allergies that she had not shared initially. Then changed to Percocet p.o. which made patient feel quite dizzy afterwards and nauseated. Patient was able to ambulate to the bathroom but continued to be quite hypertensive. Troponin, BNP and chest x-ray were include and are negative. She continued to be hypertensive initially and Dr. Morrison from hospital service was consulted for observation. Patient's pressure did start to improve in the department but while he was here and tried to sit her up she had emesis and he ultimately accepted. Discharge Plan Departure Patient Disposition: Admitted as Observation Clinical Impression: Cervical stenosis of spinal canal, Cervical spondylosis, Hypertensive urgency Admit Date/Time: 04/01/21 18:19 Admit Provider: Lauro Morrison
--- NOTE | 2021-04-01 10:39 | DI.CT.S_ITS ---
PROCEDURE: CT CERVICAL SPINE WO CON INDICATIONS: neck pain TECHNIQUE: Noncontrast 3 mm thick sections acquired from the skull base to the T4 level. Sagittal and coronal reformats were then constructed. For radiation dose reduction, the following was used: automated exposure control, adjustment of mA and/or kV according to patient size. COMPARISON: None. FINDINGS: Image quality: Excellent. Bones: No fractures or dislocations. Visualized superior ribs are intact. Mild cervical spondylitic change. There is moderate posterior disc bulge or disc protrusion at C5-C6 which results in a degree of canal stenosis. There is disc bulge at C4-C5. There is bilateral uncovertebral joint hypertrophy at C4-C5 and C5-C6 resulting in bilateral bony foraminal narrowing. Soft tissues: Prevertebral soft tissues are normal in thickness. No paravertebral hematomas. No apical pneumothoraces. A thyroid goiter is present. IMPRESSION: 1. No evidence acute cervical fracture or dislocation. 2. Cervical spondylosis with canal stenosis at C5-C6 and bilateral foraminal narrowing at C4-C5 and C5-C6. Dictated by: Willian Billingsley M.D. on 04/01/2021 at 11:12 Approved by: Willian Billingsley M.D. on 04/01/2021 at 11:15
--- NOTE | 2021-04-01 10:39 | DI.CT.S_ITS ---
PROCEDURE: CT HEAD/BRAIN WO CON INDICATIONS: neck pain, hx hemachromatosis TECHNIQUE: Noncontrast 4.5 mm thick angled axial sections acquired from the foramen magnum to the vertex, with coronal and sagittal reformats. For radiation dose reduction, the following was used: automated exposure control, adjustment of mA and/or kV according to patient size. COMPARISON: [facility], CT, HEAD WITHOUT CONTRAST, 10/16/2017, 12:08. FINDINGS: Image quality: Excellent. CSF spaces: Basal cisterns are patent. No extra-axial fluid collections. The ventricles are symmetric in size and shape. Brain: No intracranial bleeds or masses. There is cerebral volume loss for age, with resultant ventricular and sulcal prominence. There are periventricular and deep white matter chronic small vessel ischemic changes. There is intracranial internal carotid artery atherosclerosis. Skull and face: Calvarium and visualized facial bones appear intact, without suspicious lesions. Sinuses: Visualized sinuses and mastoids are clear. IMPRESSION: Unremarkable head CT for patient age. No evidence of acute stroke, hemorrhage, or mass. Dictated by: Willian Billingsley M.D. on 04/01/2021 at 11:16 Approved by: Willian Billingsley M.D. on 04/01/2021 at 11:17
[2021-04-01] MEDS: lisinopriL 5 MG TABLET PO (11:40)
[2021-04-01] MEDS: METOPROLOL IR 25 MG TABLET PO (11:40)
[2021-04-01 12:47] LABS: Add Manual Diff / Slide Review NO; Basophils Absolute Auto 0 /uL (0-100); Basophils Percent Auto 0.4 % (0-2); Eosinophils Absolute Auto 0 /uL (0-450); Eosinophils Percent Auto 0.2 % (2-4); Hematocrit 33.5 % (36-46); Hemoglobin 11.2 g/dL (12.0-16.0); Lymphocytes Absolute Auto 1700 /uL (1100-4500); Lymphocytes Percent Auto 21.6 % (25-40); Mean Corpuscular HGB Conc 33.5 % (30-36); Mean Corpuscular Hemoglobin 28.6 PG (26-34); Mean Corpuscular Volume 85.4 fL (80-100); Monocytes Absolute Auto 500 /uL (0-900); Monocytes Percent Auto 7.1 % (3-14); Neutrophils Absolute Auto 5400 /uL (1500-7000); Neutrophils Percent Auto 70.7 % (50-75); Platelet Count 203 X10^3/uL (150-400); Red Blood Cell Count 3.92 X10^6/uL (4.0-5.2); Red Cell Distribution Width 12.8 % (11.6-14.8); White Blood Cell Count 7.7 X10^3/uL (4.5-11.0)
[2021-04-01 12:54] LABS: Alanine Aminotransferase 43 IU/L (<35); Albumin 3.9 g/dL (3.5-5.0); Albumin Globulin Ratio 1.1 (1.0-2.8); Alkaline Phosphatase 152 U/L (38-126); Aspartate Aminotransferase 38 IU/L (14-36); BUN Creatinine Ratio 21.2 (6-22); Bilirubin Total 0.5 mg/dL (0.2-1.3); Blood Urea Nitrogen 11 mg/dL (7-17); Calcium 9.4 mg/dL (8.4-10.2); Carbon Dioxide 26 mmol/L (22-32); Chloride 98 mmol/L (98-107); Estimated Glomerular Filt Rate > 60.0 mL/min (>60); Globulin 3.5 g/dL (1.7-4.1); Glucose 142 mg/dL (80-110); HEMOLYSIS < 15 (0-50); Potassium 4.2 mmol/L (3.4-5.1); Sodium 130 mmol/L (137-145); Total Protein 7.4 g/dL (6.3-8.2)
[2021-04-01] MEDS: predniSONE 20 MG TABLET 60 MG PO (13:59)
[2021-04-01] MEDS: OXYCODONE/ACETAMINOPHEN 5/325 TABLET 2 TAB PO (13:59)
[2021-04-01] MEDS: SODIUM CHLORIDE 0.9% 1,000 ML 1000 ML IV (15:01)
[2021-04-01] MEDS: ONDANSETRON 4 MG/2 ML INJ IV (15:23)
--- NOTE | 2021-04-01 15:51 | DI.RAD.S_ITS ---
PROCEDURE: XR CHEST 1V INDICATIONS: dizzy, hypertension TECHNIQUE: One view of the chest was acquired. COMPARISON: [facility], , CHEST 1 VIEW, 08/14/2017, 12:30. FINDINGS: Surgical changes and devices: None. Lungs and pleura: Scattered subsegmental scarring and/or atelectasis. No acute consolidation. No pleural effusions or pneumothorax. Mediastinum: Mediastinal contours appear normal. Heart size is normal. Bones and chest wall: No suspicious bony lesions. Overlying soft tissues appear unremarkable. IMPRESSION: No acute disease. Dictated by: Naveen Pike M.D. on 04/01/2021 at 16:31 Approved by: Naveen Pike M.D. on 04/01/2021 at 16:31
[2021-04-01] MEDS: METOPROLOL TARTRATE 5 MG/5 ML INJ IV ×3 (16:03→16:26)
[2021-04-01 16:07] LABS: Creatine Kinase 64 U/L (30-135)
[2021-04-01 16:18] LABS: NT-proBNP (BNP-Adult 18+) 256 pg/mL (<450)
[2021-04-01 16:20] LABS: Troponin I < 0.012 ng/mL (0.01-0.034)
--- NOTE | 2021-04-01 18:29 | PM.HP.1 ---
History of Present Illness History of Present Illness Date Patient Seen: 04/01/21 Time Patient Seen: 18:29 Chief complaint: so much pain, back of neck radiating to shoulders Narrative: Nadia Aldridge is an 85-year-old female with a past medical history of hypertension, hyperlipidemia, ? Pre diabetes and type 4 hemochromatosis, followed by Hematology here who presented to the emergency room with right shoulder and neck pain starting since last Thursday. She denies any numbness or tingling in that arm but states that is been increasing in severity. The pain seems to be worse with any movement. She denies any falls or trauma. She does not particularly recall any event that started her pain. She denies any chest pain, shortness of breath, nausea, vomiting, headache, vision changes, abdominal pain, diarrhea, dysuria, urinary frequency, fever, chills, lower extremity edema, orthopnea. In the emergency room, the patient was initially markedly hypertensive but the remainder of her vital signs are unremarkable. She received 2 doses of IV Toradol, prednisone 60 mg, to Percocet tablets, normal saline bolus, 3 doses IV metoprolol in addition to her usual home medications of metoprolol and lisinopril. She also received a dose of IV labetalol. She had a head CT and chest x-ray which were unremarkable. CT scan of her cervical spine revealed mild stenosis and she was recommended for outpatient orthopedic follow-up. She was given doses of prednisone as noted above. She had not eaten in the emergency room. Medicine was called because of persistent hypertension and nausea. The patient's nausea started after pain medications were given. EKG showed normal sinus rhythm without any evidence of acute ischemia. Initial laboratory evaluation revealed a stable anemia with a hemoglobin of 11.2, mild hyponatremia with the sodium of 130, mild transaminitis, but negative troponin. ProBNP was 256. The patient was seen in the emergency room but upon sitting started vomiting and her blood pressure was still in the 190s systolic. She was admitted for further observation of hypertensive urgency. 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 no relevant past family history) Safety & Behavioral: Feels Safe in Current Yes Environment Been Physically Hurt or No Threatened By a Person Tobacco & Substance use: Smoking Status Never smoker alcohol intake frequency 0-2 drinks per day Substance Use Type does not use Comment: rare EtOH, denies tobacco, illicit substance use. Meds Home Medications and Allergies Home Medications Medication Instructions Recorded Confirmed Type cholecalciferol (vitamin D3) 1,000 unit PO QDAY #0 08/14/17 11/14/20 History [Vitamin D3] lisinopril 5 mg PO QDAY #0 08/14/17 11/14/20 History metformin [Glucophage] 500 mg PO QDAY #0 08/14/17 11/14/20 History metoprolol succinate [Toprol XL] 25 mg PO QPM #0 08/14/17 11/14/20 History multivitamin [Multiple Vitamins] 1 tab PO QDAY #0 08/14/17 11/14/20 History cetirizine 10 mg PO QDAYP PRN #0 10/16/17 11/14/20 History omeprazole 20 mg PO DAILY 11/14/20 11/14/20 History oxycodone 5 mg PO QID PRN #20 tab 04/01/21 Rx prednisone 40 mg PO DAILY #10 tab 04/01/21 Rx Allergies Allergy/AdvReac Type Severity Reaction Status Date / Time aspirin [ASPIRIN] Allergy Unknown RASH Verified 08/29/19 11:36 [id number] [From NUBAIN] Allergy Unknown CONVULSIONS Verified 08/29/19 11:36 Sulfa (Sulfonamide Allergy Unknown RASH Verified 08/29/19 11:36 Antibiotics) [SULFA (SULFONAMIDE ANTIBIOTICS)] Review of Systems Review of Systems Narrative: All other systems reviewed with the patient and are negative unless otherwise stated. Exam Vital Signs (past 8 hours): - 04/01/21 10:30 04/01/21 11:06 04/01/21 11:25 Pulse Rate 72 64 Respiratory Rate 44 H 18 Blood Pressure 208/84 H 182/79 H Pulse Oximetry 100 81 L 99 04/01/21 11:30 04/01/21 12:00 04/01/21 12:30 Pulse Rate 67 66 59 L Respiratory Rate 20 16 18 Blood Pressure Pulse Oximetry 99 100 100 04/01/21 13:00 04/01/21 13:03 04/01/21 13:30 Pulse Rate 57 L 58 L 59 L Respiratory Rate Blood Pressure 209/74 H Pulse Oximetry 99 99 99 04/01/21 14:00 04/01/21 14:27 04/01/21 15:04 Pulse Rate 59 L 65 69 Respiratory Rate 21 Blood Pressure 197/80 H Pulse Oximetry 99 98 97 04/01/21 15:30 04/01/21 15:35 04/01/21 15:37 Pulse Rate 66 66 67 Respiratory Rate 45 H 47 H 47 H Blood Pressure 221/96 H 221/96 H Pulse Oximetry 98 95 95 04/01/21 16:00 04/01/21 16:08 04/01/21 16:14 Pulse Rate 62 61 59 L Respiratory Rate 37 H 25 H 25 H Blood Pressure 221/91 H 207/91 H Pulse Oximetry 95 93 95 04/01/21 16:24 04/01/21 16:30 04/01/21 16:32 Pulse Rate 58 L 57 L 57 L Respiratory Rate 20 23 22 Blood Pressure 207/80 H 179/76 H Pulse Oximetry 93 95 94 04/01/21 16:45 04/01/21 17:00 04/01/21 17:30 Pulse Rate 57 L 55 L 55 L Respiratory Rate 19 21 25 H Blood Pressure 171/74 H Pulse Oximetry 94 94 93 04/01/21 18:00 04/01/21 18:10 04/01/21 18:13 Pulse Rate 54 L 58 L 60 Respiratory Rate 17 32 H 30 H Blood Pressure 200/83 H 195/84 H Pulse Oximetry 94 97 97 Oxygen Delivery Method Room Air Narrative Exam Narrative: GENERAL APPEARANCE: Well developed, well nourished, appears younger than stated age but slightly pale and slow to respond. When attempting to have the patient sit up she became nauseous and had small volume emesis, nonbloody, and nonbilious. SKIN: Inspection of the skin reveals no rashes, ulcerations or petechiae. HEENT: Normocephalic atraumatic, extraocular muscles are intact, oropharynx is clear and mucous membranes are moist, neck is supple without adenopathy NECK: Supple and symmetric. There was no thyroid enlargement, and no tenderness, or masses were felt. CHEST: Normal AP diameter and normal contour without any kyphoscoliosis. LUNGS: Auscultation of the lungs revealed no wheezes, rhonchi, or rales. CARDIOVASCULAR: There was a regular rate and rhythm without any murmurs, gallops, rubs. Peripheral pulses were 2+ and symmetric. ABDOMEN: Soft and nontender with normal bowel sounds. No ascites was noted. MUSCULOSKELETAL: Mild right shoulder tenderness, no obvious effusions or extremity swelling. EXTREMITIES: No cyanosis, clubbing or edema. NEUROLOGIC: Alert and oriented x 3. Groggy. Gait was not assessed. Strength is +5/5 in the Upper Extremities and Lower Extremities Bilaterally. Sensation to touch was normal. Objective ECG Impression: Normal sinus rhythm without evidence of ischemia Imaging CT neck: Radiologist's impression: PROCEDURE: CT CERVICAL SPINE WO CON INDICATIONS: neck pain TECHNIQUE: Noncontrast 3 mm thick sections acquired from the skull base to the T4 level. Sagittal and coronal reformats were then constructed. For radiation dose reduction, the following was used: automated exposure control, adjustment of mA and/or kV according to patient size. COMPARISON: None. FINDINGS: Image quality: Excellent. Bones: No fractures or dislocations. Visualized superior ribs are intact. Mild cervical spondylitic change. There is moderate posterior disc bulge or disc protrusion at C5-C6 which results in a degree of canal stenosis. There is disc bulge at C4-C5. There is bilateral uncovertebral joint hypertrophy at C4-C5 and C5-C6 resulting in bilateral bony foraminal narrowing. Soft tissues: Prevertebral soft tissues are normal in thickness. No paravertebral hematomas. No apical pneumothoraces. A thyroid goiter is present. IMPRESSION: 1. No evidence acute cervical fracture or dislocation. 2. Cervical spondylosis with canal stenosis at C5-C6 and bilateral foraminal narrowing at C4-C5 and C5-C6. Labs Result Diagrams: 04/01/21 12:30 04/01/21 12:30 Labs: Laboratory Results - last 24 hr 04/01/21 04/01/21 04/01/21 12:30 12:30 12:30 WBC 7.7 RBC 3.92 L Hgb 11.2 L Hct 33.5 L MCV 85.4 MCH 28.6 MCHC 33.5 RDW 12.8 Plt Count 203 Neut % (Auto) 70.7 Lymph % (Auto) 21.6 L [place] % (Auto) 7.1 Eos % (Auto) 0.2 L Baso % (Auto) 0.4 Neut # (Auto) 5400 Lymph # (Auto) 1700 Garrett # (Auto) 500 Eos # (Auto) 0 Baso # (Auto) 0 Sodium 130 L Potassium 4.2 Chloride 98 Carbon Dioxide 26 BUN 11 Creatinine 0.52 Estimated GFR > 60.0 BUN/Creatinine Ratio 21.2 Glucose 142 H Calcium 9.4 Total Bilirubin 0.5 AST 38 H ALT 43 H Alkaline Phosphatase 152 H Total Creatine Kinase 64 CK-MB (CK-2) TNP CK-MB (CK-2) Rel Index TNP Troponin I < 0.012 NT-Pro-B Natriuret Pep Total Protein 7.4 Albumin 3.9 Globulin 3.5 Albumin/Globulin Ratio 1.1 04/01/21 12:30 WBC RBC Hgb Hct MCV MCH MCHC RDW Plt Count Neut % (Auto) Lymph % (Auto) Garrett % (Auto) Eos % (Auto) Baso % (Auto) Neut # (Auto) Lymph # (Auto) Garrett # (Auto) Eos # (Auto) Baso # (Auto) Sodium Potassium Chloride Carbon Dioxide BUN Creatinine Estimated GFR BUN/Creatinine Ratio Glucose Calcium Total Bilirubin AST ALT Alkaline Phosphatase Total Creatine Kinase CK-MB (CK-2) CK-MB (CK-2) Rel Index Troponin I NT-Pro-B Natriuret Pep 256 Total Protein Albumin Globulin Albumin/Globulin Ratio Assessment & Plan Assessment & Plan narrative: Nadia Aldridge is an 85-year-old female with a past medical history of hypertension, hyperlipidemia, ? Pre diabetes and type 4 hemochromatosis, followed by Hematology here who presented to the emergency room with right shoulder and neck pain starting since last Thursday. She was admitted for further observation of hypertensive urgency and nausea/vomiting likely secondary to opiate pain medication. 1. Nausea/vomiting - suspect secondary to prolonged NPO status in the ER in addition to polypharmacy including 2 percocets. Given no other acute lab abnormalites unlikely to be hypertension related. - continue zofran prn - hold opiates, try to optimize pain with tylenol, pain patch for now 2. Hypertensive urgency - persistently high BP in the past per Er documentation. - suspect secondary to pain, in addition to recent nausea/vomiting. - continue home medications, increase as noted. 3. Right neck and shoulder pain, cervical spondylosis. - continue prednisone 40 mg daily recommended in the ER for her spondylsosis and canal stenosis. pain control as above. - outpatient orthopedics follow up recommended. 4. Pre-diabetes - willl continue diet controlled diet, hold home metformin which is low dose. start sliding scale given prednisone. Code: Full as discussed with the patient, surrogate decision maker is the patient's daughter, who was at bedside. Dispo: Admitted for observation status as her stay is not expected to exceed 2 midnights DVT: Lovenox daily
[2021-04-01 19:44] LABS: COVID19 - ADMIT (NP swab/PCR) Negative (Negative)
[2021-04-01 21:16] LABS: Bacteria Urine None Seen; WBC Urine None Seen (0-5/HPF)
[2021-04-01 21:35] LABS: RBC Urine 1-5/HPF (0-5/HPF)
[2021-04-01 21:36] LABS: Culture Indicated Urine Cult Not Indicated; Hyaline Casts Urine 0-1/LPF; Squamous Epithelial Cell Urine 0-1 /HPF (0-5/HPF)
[2021-04-02] VITALS (8 sets, daily range): BP systolic 134–145; BP diastolic 53–60; PULSE 63–64; RESP 16; TEMP 36.6–36.7; O2SAT 97–99
[2021-04-02 06:31] LABS: Add Manual Diff / Slide Review NO; Basophils Absolute Auto 0 /uL (0-100); Basophils Percent Auto 0.2 % (0-2); Eosinophils Absolute Auto 0 /uL (0-450); Hematocrit 33.6 % (36-46); Hemoglobin 10.9 g/dL (12.0-16.0); Lymphocytes Absolute Auto 1200 /uL (1100-4500); Mean Corpuscular HGB Conc 32.5 % (30-36); Mean Corpuscular Hemoglobin 28.1 PG (26-34); Mean Corpuscular Volume 86.5 fL (80-100); Monocytes Absolute Auto 400 /uL (0-900); Monocytes Percent Auto 4.4 % (3-14); Neutrophils Absolute Auto 6800 /uL (1500-7000); Neutrophils Percent Auto 81.4 % (50-75); Platelet Count 221 X10^3/uL (150-400); Red Blood Cell Count 3.89 X10^6/uL (4.0-5.2); Red Cell Distribution Width 12.9 % (11.6-14.8); White Blood Cell Count 8.3 X10^3/uL (4.5-11.0)
[2021-04-02 06:41] LABS: Alanine Aminotransferase 39 IU/L (<35); Albumin 3.6 g/dL (3.5-5.0); Albumin Globulin Ratio 1.1 (1.0-2.8); Alkaline Phosphatase 136 U/L (38-126); Aspartate Aminotransferase 31 IU/L (14-36); BUN Creatinine Ratio 18.2 (6-22); Bilirubin Total 0.4 mg/dL (0.2-1.3); Bilirubin Unconjugated 0.4 mg/dL (0.0-1.1); Blood Urea Nitrogen 12 mg/dL (7-17); Calcium 9.4 mg/dL (8.4-10.2); Carbon Dioxide 26 mmol/L (22-32); Chloride 97 mmol/L (98-107); Estimated Glomerular Filt Rate > 60.0 mL/min (>60); Globulin 3.3 g/dL (1.7-4.1); Glucose 148 mg/dL (80-110); HEMOLYSIS < 15 (0-50); Magnesium 1.9 mg/dL (1.6-2.3); Potassium 4.6 mmol/L (3.4-5.1); Sodium 128 mmol/L (137-145); Total Protein 6.9 g/dL (6.3-8.2)
[2021-04-02] MEDS: SODIUM CHLORIDE 0.9% 500 ML 1000 ML IV (08:46)
[2021-04-02] MEDS: METOPROLOL ER 25 MG TABLET PO (08:50)
[2021-04-02] MEDS: lisinopriL 5 MG TABLET PO (08:50)
[2021-04-02] MEDS: ACETAMINOPHEN 325 MG TABLET 650 MG PO (08:50)
[2021-04-02] MEDS: predniSONE 20 MG TABLET 40 MG PO (08:50)
[2021-04-02] MEDS: INSULIN LISPRO 100 UNIT/ML 3ML VIAL SUBCUT (08:51)
[2021-04-02] MEDS: ENOXAPARIN 40 MG/0.4 ML SYRINGE SUBCUT (08:51)
--- NOTE | 2021-04-02 10:24 | PC.NURSE ---
Day shift: Pt ambulated around entire [facility] station. Approx 100 feet. Tolerated well. O2 >95%. No c/o chest pain. Used FWW. Steady on feet. Slow moving. Able to talk while ambulating. Pain remains in neck but tolerable (per Pt).
--- NOTE | 2021-04-02 12:00 | PC.NURSE ---
Day shift: Paperwork signed and all questions answered. MD salazar went to Pt's pharmacy. Delmer remains CDI. CMS WNL and good cap refill RUE. Pt denies any nausea. Pt has also not needed any narcotic pain meds. Ambulating well. Pt stated she is happy to be going home today. Her friend is driving her home. Pt taken to friends car in by NADIA Vincent. Pt has all personal belongings.
--- NOTE | 2021-04-02 13:01 | PM.DS.1 ---
History of Present Illness History of Present Illness Chief complaint: so much pain, back of neck radiating to shoulders Narrative: Per Dr. Morrison: Nadia Aldridge is an 85-year-old female with a past medical history of hypertension, hyperlipidemia, ? Pre diabetes and type 4 hemochromatosis, followed by Hematology here who presented to the emergency room with right shoulder and neck pain starting since last Thursday. She denies any numbness or tingling in that arm but states that is been increasing in severity. The pain seems to be worse with any movement. She denies any falls or trauma. She does not particularly recall any event that started her pain. She denies any chest pain, shortness of breath, nausea, vomiting, headache, vision changes, abdominal pain, diarrhea, dysuria, urinary frequency, fever, chills, lower extremity edema, orthopnea. In the emergency room, the patient was initially markedly hypertensive but the remainder of her vital signs are unremarkable. She received 2 doses of IV Toradol, prednisone 60 mg, to Percocet tablets, normal saline bolus, 3 doses IV metoprolol in addition to her usual home medications of metoprolol and lisinopril. She also received a dose of IV labetalol. She had a head CT and chest x-ray which were unremarkable. CT scan of her cervical spine revealed mild stenosis and she was recommended for outpatient orthopedic follow-up. She was given doses of prednisone as noted above. She had not eaten in the emergency room. Medicine was called because of persistent hypertension and nausea. The patient's nausea started after pain medications were given. EKG showed normal sinus rhythm without any evidence of acute ischemia. Initial laboratory evaluation revealed a stable anemia with a hemoglobin of 11.2, mild hyponatremia with the sodium of 130, mild transaminitis, but negative troponin. ProBNP was 256. The patient was seen in the emergency room but upon sitting started vomiting and her blood pressure was still in the 190s systolic. She was admitted for further observation of hypertensive urgency. Discharge Providers Provider Date of admission: 04/01/21 18:19 Discharge Date: 04/02/21 Primary care physician: Miroslava Ramires MD Discharge provider: Sedrick Parker MD Summary Hospital Course Discharge Diagnosis: 1. Right neck and shoulder pain due to cervical spondylosis and bilateral foraminal narrowing in cervical region 2. Hypertensive urgency 3. Nausea and vomiting with mild hyponatremia 4. Prediabetes Hospital Course: Nadia Aldridge is an 85-year-old female with a past medical history of hypertension, hyperlipidemia, ? Pre diabetes and type 4 hemochromatosis, followed by Hematology here who presented to the emergency room with right shoulder and neck pain starting since last Thursday. She was admitted for further observation of hypertensive urgency and nausea/vomiting likely secondary to opiate pain medication. She was given pain medications and she had good improvement in her pain symptoms. CT scan showed cervical spondylosis, and no acute cord compression. She had no weakness or sensory changes. In addition she had elevated blood pressure when she arrived, but this improved with pain control and with restarting her home medications. She had nausea and vomiting in the ED, likely from medications. On day of discharge she tolerated meals with no symptoms. She will be discharged home, she can follow up with her PCP, was referred to orthopedic follow up. She may benefit from outpatient PT if her symptoms return. Exam Vital Signs (past 8 hours): - 04/02/21 05:30 04/02/21 05:40 04/02/21 08:00 Temperature 97.9 F 98.1 F Pulse Rate 63 64 Respiratory Rate 16 16 Blood Pressure 134/53 L 145/60 H Pulse Oximetry 98 98 97 04/02/21 08:50 04/02/21 09:08 04/02/21 09:47 Temperature Pulse Rate 63 Respiratory Rate Blood Pressure Pulse Oximetry 97 97 04/02/21 12:48 Temperature Pulse Rate Respiratory Rate Blood Pressure Pulse Oximetry 97 Oxygen Delivery Method Room Air Oxygen Flow Rate 0 Narrative Exam Narrative: GENERAL APPEARANCE: no acute distress SKIN: no rashes LUNGS: clear with no wheezes, rhonchi, or rales. CARDIOVASCULAR: regular rate and rhythm without any murmurs, gallops, rubs ABDOMEN: Soft and nontender with normal bowel sounds. No organomegaly MUSCULOSKELETAL: Mild right shoulder tenderness, no obvious effusions or extremity swelling. EXTREMITIES: No cyanosis, clubbing or edema. NEUROLOGIC: Alert and oriented x 3. Strength is +5/5 in the Upper Extremities and Lower Extremities Bilaterally. Sensation to touch was normal. Objective Labs Result Diagrams: 04/02/21 05:58 04/02/21 05:58 Labs: Laboratory Results - last 24 hr 04/01/21 04/01/21 04/01/21 12:30 12:30 18:41 WBC RBC Hgb Hct MCV MCH MCHC RDW Plt Count Neut % (Auto) Lymph % (Auto) [place] % (Auto) Eos % (Auto) Baso % (Auto) Neut # (Auto) Lymph # (Auto) [place] # (Auto) Eos # (Auto) Baso # (Auto) Sodium Potassium Chloride Carbon Dioxide BUN Creatinine Estimated GFR BUN/Creatinine Ratio Glucose Calcium Magnesium Total Bilirubin Conjugated Bilirubin Unconjugated Bilirubin AST ALT Alkaline Phosphatase Total Creatine Kinase 64 CK-MB (CK-2) TNP CK-MB (CK-2) Rel Index TNP Troponin I < 0.012 NT-Pro-B Natriuret Pep 256 Total Protein Albumin Globulin Albumin/Globulin Ratio Urine RBC Urine WBC Ur Squamous Epith Cells Urine Bacteria Hyaline Casts Ur Culture Indicated? SARS-CoV-2 (PCR) Negative 04/01/21 04/02/21 04/02/21 20:25 05:58 05:58 WBC 8.3 RBC 3.89 L Hgb 10.9 L Hct 33.6 L MCV 86.5 MCH 28.1 MCHC 32.5 RDW 12.9 Plt Count 221 Neut % (Auto) 81.4 H Lymph % (Auto) 14.0 L [place] % (Auto) 4.4 Eos % (Auto) 0.0 L Baso % (Auto) 0.2 Neut # (Auto) 6800 Lymph # (Auto) 1200 [place] # (Auto) 400 Eos # (Auto) 0 Baso # (Auto) 0 Sodium 128 L Potassium 4.6 Chloride 97 L Carbon Dioxide 26 BUN 12 Creatinine 0.66 Estimated GFR > 60.0 BUN/Creatinine Ratio 18.2 Glucose 148 H Calcium 9.4 Magnesium 1.9 Total Bilirubin 0.4 Conjugated Bilirubin 0.0 Unconjugated Bilirubin 0.4 AST 31 ALT 39 H Alkaline Phosphatase 136 H Total Creatine Kinase CK-MB (CK-2) CK-MB (CK-2) Rel Index Troponin I NT-Pro-B Natriuret Pep Total Protein 6.9 Albumin 3.6 Globulin 3.3 Albumin/Globulin Ratio 1.1 Urine RBC 1-5/hpf Urine WBC None seen Ur Squamous Epith Cells 0-1 /hpf Urine Bacteria None seen Hyaline Casts 0-1/lpf Ur Culture Indicated? 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 Aldridge came in to the hospital with neck pain. She was found to have arthritis of the spine that is possibly irritating a nerve. She was admitted to the hospital because she also had some nausea and dizziness. She was feeling better the next day. She should follow up with an orthopedic doctor for her neck pain. She should have physical therapy as an outpatient to help her pain and strengthen her muscles. Discharge orders & Medications Prescriptions: New acetaminophen 325 mg Tablet 650 mg PO Q6HR PRN (Reason: Fever/Mild Pain (1-3)) Qty: 20 RF: 0 Continued metformin [Glucophage] 500 MG tablet 500 mg PO QDAY Qty: 0 RF: 0 multivitamin [Multiple Vitamins] 1 EACH tablet 1 tab PO QDAY Qty: 0 RF: 0 lisinopril 5 MG tablet 5 mg PO QDAY Qty: 0 RF: 0 metoprolol succinate [Toprol XL] 25 MG tablet extended release 24 hr 25 mg PO QPM Qty: 0 RF: 0 cholecalciferol (vitamin D3) [Vitamin D3] 1,000 UNIT tablet 1,000 unit PO QDAY Qty: 0 RF: 0 cetirizine 10 MG tablet 10 mg PO QDAYP PRN (Reason: Allergy Symptoms) Qty: 0 RF: 0 omeprazole 20 mg Capsule,Delayed Release(Dr/Ec) 20 mg PO DAILY RF: 0 atorvastatin 10 mg Tablet 10 mg PO BEDTIME RF: 0 Medication counseling provided by Pharmacist: Yes Pharmacist Comment: Discharge medication counseling completed with patient and daughter. Patient verbalized understanding. Follow up/Referrals: Miroslava Ramires MD [Primary Care Provider] - Riley Hair MD [Physician] - Diet/Activity/Treatments Diet: Regular Visit Report/Discharge Packet Instructions: How to Prevent Falls, DI for Nausea -- Adult, DI for Spinal Stenosis Discharge Data Primary Care Provider: Miroslava Ramires Attending Provider: Lauro Morrison [facility] [place] The patient has current or prior documentation of left ventricular ejection fraction (LVEF) less than 40%, or moderate or severely depressed left ventricular systolic function.: No
--- NOTE | 2021-04-02 13:30 | PC.NURSE ---
Day shift: Paperwork singed and all questions answered. Pt's daughter in room for d/c teaching. Pt has all personal belongings. Pt also had MD script for Tylenol. Pt stated that she is happy to be going home today. Pt ate lunch and tolerated well. Pt also get dressed with the help of her daughter. Taken to car by this fiction writer. Pt's daughter is driving her home to [facility].
--- NOTE | 2021-04-02 14:40 | CM.DANOTE ---
DCP Brief Assessment Note Patient is an 85 yo female who was admitted on 04/01/21 for Neck and Shoulder Pain. Pt has [employer] ADV and PAZ for insurance and her PCP is Dr. Miroslava Ramires. EMR was reviewed. Per MD, pt with hx of hypertension, type 4 hemochromatosis and admitted for hypertensive urgency and had N/V in ED likely due to pain medication. Pt's symptoms resolved and pt able to tolerate her general diet today, ambulated hallways independently with walker, and medically stable to d/c home with outpt PT orders. Pt resides in [place] with her Dtr/DPOA Lay and is mostly independent with ADL's at baseline. pt's Dtr arrived bedside and was able to participate in d/c instructions and observed her ambulating and agreeable with d/c home today via Dtr POV. No identified barriers to discharge and no concerns at this time. Plan: Patient discharged home this morning via Dtr's POV and no SW needs at this time. JEAN-PIERRE Delgado
== END 2021-04-02 13:32 | disposition home or self-care (01) ==
LOC: ED 14:14 → AC 18:21
PROVIDERS: Admitting Provider Internal Medicine; Emergency Provider Emergency Medicine; PCP Internal Medicine; Referring Provider Emergency Medicine; Visit Provider Internal Medicine
DX: M47.892 Other spondylosis, cervical region (principal); M48.02 Spinal stenosis, cervical region; I16.0 Hypertensive urgency; R11.2 Nausea with vomiting, unspecified; I10 Essential (primary) hypertension; E78.5 Hyperlipidemia, unspecified; E87.1 Hypo-osmolality and hyponatremia; E83.110 Hereditary hemochromatosis; R73.03 Prediabetes; Z79.84 Long term (current) use of oral hypoglycemic drugs; Z20.822 Contact with and (suspected) exposure to COVID-19
CPT/HCPCS: 36415; 70450; 71045; 72125; 80048; 80053; 80076; 81003; 81015; 82550; 82962; 83735; 83880; 84484; 85025; 87635; 93005; 93010; 94760; 96361; 96372; 96374; 96375; 99284; C9803; G0378; J1650; J1815; J2405

== ENCOUNTER → 2021-06-03 09:55 | Outpatient (CLI) | payer OTHER, MEDICAID, SELFPAY ==
[2021-04-01 19:47] VITALS: BMI 28.6
[2021-06-03 11:19] LABS: Add Manual Diff / Slide Review NO; Basophils Absolute Auto 100 /uL (0-100); Eosinophils Absolute Auto 100 /uL (0-450); Eosinophils Percent Auto 1.9 % (2-4); Hematocrit 36.5 % (36-46); Hemoglobin 11.9 g/dL (12.0-16.0); Lymphocytes Absolute Auto 1600 /uL (1100-4500); Lymphocytes Percent Auto 30.7 % (25-40); Mean Corpuscular HGB Conc 32.7 % (30-36); Mean Corpuscular Hemoglobin 28.4 PG (26-34); Mean Corpuscular Volume 86.8 fL (80-100); Monocytes Absolute Auto 300 /uL (0-900); Monocytes Percent Auto 6.4 % (3-14); Neutrophils Absolute Auto 3100 /uL (1500-7000); Platelet Count 218 X10^3/uL (150-400); Red Cell Distribution Width 12.6 % (11.6-14.8); White Blood Cell Count 5.2 X10^3/uL (4.5-11.0)
[2021-06-03 11:27] LABS: Ferritin 261 ng/mL (11-264)
[2021-06-03 11:38] LABS: Alanine Aminotransferase 28 IU/L (<35); Albumin 4.3 g/dL (3.5-5.0); Albumin Globulin Ratio 1.2 (1.0-2.8); Alkaline Phosphatase 108 U/L (38-126); Aspartate Aminotransferase 31 IU/L (14-36); BUN Creatinine Ratio 25.3 (6-22); Bilirubin Total 0.6 mg/dL (0.2-1.3); Blood Urea Nitrogen 21 mg/dL (7-17); Calcium 9.5 mg/dL (8.4-10.2); Carbon Dioxide 26 mmol/L (22-32); Chloride 99 mmol/L (98-107); Estimated Glomerular Filt Rate > 60.0 mL/min (>60); Globulin 3.5 g/dL (1.7-4.1); Glucose 130 mg/dL (80-110); HEMOLYSIS < 15 (0-50); Potassium 4.9 mmol/L (3.4-5.1); Sodium 132 mmol/L (137-145); Total Protein 7.8 g/dL (6.3-8.2)
== END ==
PROVIDERS: PCP Internal Medicine; Referring Provider Internal Medicine Medical Oncology; Visit Provider Internal Medicine
DX: E83.110 Hereditary hemochromatosis (principal)
CPT/HCPCS: 36415; 80053; 82728; 85025

== ENCOUNTER → 2022-02-17 11:01 | Outpatient (CLI) | payer OTHER, MEDICAID, SELFPAY ==
[2022-02-04 15:29] VITALS: BMI 28.6
[2022-02-17 13:41] LABS: COVID19 -Nasal RAPID Negative (Negative)
== END ==
PROVIDERS: PCP Internal Medicine; Visit Provider Surgery
DX: Z01.812 Encounter for preprocedural laboratory examination (principal); Z20.822 Contact with and (suspected) exposure to COVID-19
CPT/HCPCS: 87635; C9803

== ENCOUNTER 2022-02-18 11:02 | Day surgery (SDC) | payer OTHER, MEDICAID, SELFPAY ==
[2022-02-04 15:29] VITALS: BMI 28.6
[2022-02-18] VITALS (9 sets, daily range): BP systolic 141–185; BP diastolic 49–78; PULSE 64–83; RESP 15–18; TEMP 35.9–36.1; O2SAT 95–100; BMI 25.9
--- NOTE | 2022-02-18 | DI.RAD.S_ITS ---
PROCEDURE: XR CHEST 1V INDICATIONS: new port a cath TECHNIQUE: One view of the chest was acquired. COMPARISON: [facility], CR, XR CHEST 1V, 04/01/2021, 15:57. FINDINGS: Surgical changes and devices: Right chest wall Port-A-Cath. Lungs and pleura: Lungs are clear. No pleural effusions or pneumothorax. Mediastinum: Mediastinal contours appear normal. Heart size is normal. Bones and chest wall: No suspicious bony lesions. Overlying soft tissues appear unremarkable. IMPRESSION: Status post right chest Port-A-Cath placement. No acute cardiopulmonary disease process. Dictated by: Laura Berry MD, PhD on 02/18/2022 at 15:47 Approved by: Laura Berry MD, PhD on 02/18/2022 at 15:47
[2022-02-18] MEDS: LACTATED RINGERS 1,000 ML 42 ML IV (11:24)
[2022-02-18] MEDS: ACETAMINOPHEN 325 MG TABLET 975 MG PO (11:31)
[2022-02-18] MEDS: GABAPENTIN 300 MG CAPSULE PO (11:32)
--- NOTE | 2022-02-18 13:39 | PM.HP.1 ---
History of Present Illness History of Present Illness Date Patient Seen: 02/18/22 Time Patient Seen: 13:39 Chief complaint: PORT PLACEMENT Narrative: Nadia is an 86-year-old woman with a recent diagnosis of renal cell carcinoma. Port was requested. She has had a thyroidectomy many years ago. 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 Hypertension Surgical History (Updated 06/11/21 @ 14:34 by Kervin Dixon MD) History of right oophorectomy History of salpingectomy Family & Social History Social History: household members children Tobacco & Substance use: Smoking Status Never smoker alcohol intake current alcohol intake frequency holiday/special occasion Substance Use Type does not use Meds Home Medications and Allergies Home Medications Medication Instructions Recorded Confirmed Type cholecalciferol (vitamin D3) 25 1,000 unit PO QDAY #0 08/14/17 02/18/22 History mcg (1,000 unit) tablet (Vitamin D3) lisinopril 5 mg tablet 5 mg PO QDAY #0 08/14/17 02/18/22 History metformin 500 mg tablet 500 mg PO QDAY #0 08/14/17 02/18/22 History (Glucophage) metoprolol succinate 25 mg 25 mg PO QPM #0 08/14/17 02/18/22 History tablet,extended release 24 hr (Toprol XL) multivitamin (Multiple Vitamins) 1 tab PO QDAY #0 08/14/17 02/12/22 History cetirizine 10 mg tablet 10 mg PO QDAYP PRN #0 10/16/17 02/18/22 History acetaminophen 500 mg tablet 500 mg PO Q6H PRN 12/31/21 02/18/22 History Allergies Allergy/AdvReac Type Severity Reaction Status Date / Time aspirin [ASPIRIN] Allergy Unknown RASH Verified 02/18/22 11:48 nalbuphine [From NUBAIN] Allergy Unknown CONVULSIONS Verified 02/18/22 11:48 Sulfa (Sulfonamide Allergy Unknown RASH Verified 02/18/22 11:48 Antibiotics) [SULFA (SULFONAMIDE ANTIBIOTICS)] adhesive tape AdvReac Severe Blister Verified 02/18/22 11:50 Latex, Natural Rubber AdvReac Intermediate Blister Verified 02/18/22 12:12 Exam Vital Signs (past 8 hours): - 05/03/22 11:55 Temperature 97.0 F L Pulse Rate 68 Respiratory Rate 16 Blood Pressure 185/76 H Pulse Oximetry 100 Oxygen Delivery Method Room Air Narrative Exam Narrative: Normal right clavicle There is a large thyroidectomy scar which is inferior to the clavicular heads. Assessment & Plan Assessment and plan (1) Renal cancer: Qualifiers: Laterality: unspecified laterality Qualified Code(s): C64.9 - Malignant neoplasm of unspecified kidney, except renal pelvis Status: Acute Plan We will plan for a Port-A-Cath. We reviewed the risks and benefits and she would like to proceed. COVID-19 COVID-19 status: Negative Result date/Date tested (Pos, Neg/Pending): 02/17/22 Time Spent With Patient Critical Care time: I spent a total of [] minutes of critical care time on this patient's care today; this time is exclusive of procedural time.
[2022-02-18] MEDS: CEFAZOLIN 2 GM/20 ML SYRINGE IV (14:18)
--- NOTE | 2022-02-18 14:38 | SUR.OPER ---
Supine on padded OR bed, head on pillow, arms padded and tucked at sides, legs uncrossed, safety belt at thigh, tape over blanket over lower legs . Directed and approved by surgeon
[2022-02-18] MEDS: LIDOCAINE 1% W/EPI 20 ML INJ (14:47)
[2022-02-18] MEDS: BUPIVACAINE 0.5% (PF) VIAL 30 ML INJ (14:48)
--- NOTE | 2022-02-18 15:12 | PM.OP.1 ---
Operative Date/Time/Diagnoses Date of procedure: 02/18/22 Time of procedure: 15:12 Pre-op diagnosis: Renal cell carcinoma Post-op diagnosis: same Procedure & Clinicians Procedure: Port-A-Cath with ultrasound guidance and fluoroscopic guidance Same procedure as scheduled: Yes Surgeon: Moises Phan Anesthesia Type: General Operative Notes Procedure in detail: The patient was brought to the operating room, placed on the table in the supine position with the arms tucked. Ancef was administered. Anesthesia was induced via LMA. A time-out was performed. The right chest and neck were prepped and draped in the usual fashion. An ultrasound was used to identify the right internal jugular vein. The vein was noted to be patent. An image was saved and printed and placed in the chart. The right internal jugular vein was accessed via the Seldinger technique under ultrasound guidance. The guidewire was inserted into the superior vena cava. C-arm was used to confirm proper position of the guidewire in the superior vena cava and no ectopy was noted. The needle was removed and the wire was clamped to the drape. Next, a port pocket was created just inferior to the medial clavicle using a 11 blade scalpel. Dissection was carried down to the pectoral fascia. A subcutaneous pocket was created using a combination of cautery and blunt dissection. Next, the port which was primed with injectable saline, was secured to the fascia with 3-0 PDS sutures left untied and clamped. The neck incision was extended with an 11 blade scalpel to approximately 5 mm. The dilator and peel-away sheath were inserted over the wire without resistance. The catheter was passed from the neck incision to the chest incision in the subcutaneous tissue using the tunnelling device. The wire and dilator were then removed and the catheter inserted through the peel-away sheath to deliver it into the superior vena cava. The depth of the device was checked using the C-arm and the tip of the device was noted to be in the distal superior vena cava. The exterior portion of the catheter was then trimmed and attached to the port using the strain relief collar. A final image showed good position of the catheter with no kinks. The port was then tucked into the subcutaneous pocket and the sutures were tied to secure the device. The port was then accessed using the Rodríguez needle and it was noted that the device joseph and flushed easily without resistance. Approximately 4 mL of heparinized saline were injected into the device. The skin incisions were closed with 3-0 Vicryl and 4-0 Monocryl. Steri-Strips were applied patient was awakened and brought to recovery room EBL: 5 mL Ultrasound: The right internal jugular vein was patent. The right carotid artery was visualized adjacent to the vein. Venipuncture was visualized in real-time using the ultrasound. Fluoroscopy: The device was positioned appropriately with the distal end of the catheter near the atriocaval junction. There were no kinks in the catheter. Post-operative Condition: stable Disposition: PACU
== END 2022-02-18 17:03 | disposition home or self-care (01) ==
PROVIDERS: PCP Internal Medicine; Referring Provider Surgery; Visit Provider Surgery
PROC: (CPT 36561; principal; 2022-02-18 14:00)
DX: C64.9 Malignant neoplasm of unspecified kidney, except renal pelvis (principal); E11.9 Type 2 diabetes mellitus without complications; Z79.84 Long term (current) use of oral hypoglycemic drugs; I10 Essential (primary) hypertension
CPT/HCPCS: 36561; 71045; 76000; 82962; C1788; J0690; J1644; J2405; J2704

== ENCOUNTER → 2022-05-16 11:08 | Outpatient (CLI) | payer OTHER, MEDICAID, SELFPAY ==
[2022-02-04 15:29] VITALS: BMI 28.6
--- NOTE | 2022-05-16 11:09 | DI.CT.S_ITS ---
PROCEDURE: CT CHEST ABD PEL W CON INDICATIONS: monitoring on treatment kidney cancer TECHNIQUE: After the administration of oral and intravenous contrast, axial sections acquired from the supraclavicular neck to the pubic symphysis. Coronal and sagittal reformats were performed. For radiation dose reduction, the following was used: automated exposure control, adjustment of mA and/or kV according to patient size. COMPARISON: 12/25/2021 PET/CT, CT chest abdomen pelvis 11/29/2021 and 11/08/2021 FINDINGS: Image quality: Excellent. CHEST: Lower Neck: No enlarged lymph nodes. Thyroid: Similar goitrous appearance of the thyroid . Axillae: No enlarged lymph nodes. Chest Wall: Unremarkable. Lungs and Airways: Scattered scarring/atelectasis. Superior left lower lobe lesion measures about 6 mm (4/73), slightly enlarged from prior when it measured 4-5 mm . Other small nodules are present. Previously hypermetabolic nodules now present as areas of scarring, for example in left lower lobe 111. Pleura: No pneumothorax or pleural effusions. Heart: Right port catheter terminates in right atrium. There are coronary artery calcifications. Thoracic Vessels: The aorta and pulmonary arteries demonstrate normal size. Mediastinum and Latrice: No enlarged lymph nodes. Esophagus: No wall thickening. <No> hiatal hernia. ABDOMEN: Liver: Unremarkable. Gallbladder: Unremarkable Biliary ducts: Mild dilation as before Pancreas: Unremarkable. Spleen: Unremarkable. Adrenal Glands: No discrete left adrenal lesion. Kidneys and Ureters: No right hydronephrosis. No right renal mass. Compare to 12/25/2021, the main part of the left upper pole renal mass is decreased, measuring about 4.5 x 3.6 cm. In October 2021, this measures 6.3 x 5.1 cm. However, an adjacent exophytic component (3/48) abutting the spleen measures 1.9 x 1.9 cm and is more prominent than prior. There is suspected venous invasion into the left renal vein upper pole tributaries. A pararenal deposit that previously measured 1.3 cm is now more ill-defined measuring 6 mm (3/54). Stomach and Bowel: No bowel obstruction. Peritoneum: No abnormal intraperitoneal fluid. No free air. Ventral Wall: Small fat containing umbilical hernia. Abdominal Nodes: As above. Increased size of some left periaortic lymph nodes, of note /63 measuring 7 mm in short axis, previously 5 mm. Vessels: Atherosclerotic calcifications are present. PELVIS: Pelvic Organs: Hysterectomy Bladder: Unremarkable. Pelvic Nodes: No enlarged lymph nodes. Miscellaneous: No inguinal hernias are seen. Bones: Spondylosis. No suspicious osseous lesion. 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 The primary renal mass, left adrenal lesion, and pararenal soft tissue deposit adjacent to the left renal vein have also decreased in size. However, a single left upper lobe pulmonary nodule, some left periaortic lymph nodes, and satellite exophytic lesion abutting the spleen from the left lateral superior renal pole are increased in size. These findings suggest a heterogeneous malignant cell population with mixed treatment response. Suspected early venous invasion into the left renal vein tributaries. Dictated by: Juliano Wade M.D. on 05/16/2022 at 14:22 Approved by: Juliano Wade M.D. on 05/16/2022 at 14:47
== END ==
PROVIDERS: PCP Internal Medicine; Referring Provider Internal Medicine Medical Oncology; Visit Provider Internal Medicine Medical Oncology
DX: C64.9 Malignant neoplasm of unspecified kidney, except renal pelvis (principal); C78.02 Secondary malignant neoplasm of left lung; R59.0 Localized enlarged lymph nodes; E27.9 Disorder of adrenal gland, unspecified; I25.10 Atherosclerotic heart disease of native coronary artery without angina pectoris; Z90.710 Acquired absence of both cervix and uterus
CPT/HCPCS: 71260; 74177; Q9967

== ENCOUNTER → 2022-08-11 10:18 | Outpatient (CLI) | payer OTHER, MEDICAID, SELFPAY ==
[2022-02-04 15:29] VITALS: BMI 28.6
--- NOTE | 2022-08-11 10:20 | DI.CT.S_ITS ---
PROCEDURE: CT CHEST ABD PEL W CON INDICATIONS: kidney cancer monitoring TECHNIQUE: After the administration of oral and intravenous contrast, axial sections acquired from the supraclavicular neck to the pubic symphysis. Coronal and sagittal reformats were performed. For radiation dose reduction, the following was used: automated exposure control, adjustment of mA and/or kV according to patient size. COMPARISON: [facility], CT, CT CHEST ABD PEL W CON, 05/16/2022, 12:49. FINDINGS: Image quality: Excellent. CHEST: Lower Neck: No enlarged lymph nodes. Thyroid: The thyroid has a nodular, enlarged appearance as before. Axillae: No enlarged lymph nodes. Chest Wall: Unremarkable. Lungs and Airways: No consolidation or suspicious nodules. Pleura: No pneumothorax or pleural effusions. Heart: Heart size is normal. No pericardial effusion. Thoracic Vessels: The aorta and pulmonary arteries demonstrate normal size. Scattered atheromatous calcifications are present within the aortic arch. Mediastinum and Latrice: No enlarged lymph nodes. Esophagus: No wall thickening. No hiatal hernia. ABDOMEN: Liver: Unremarkable. Gallbladder: Unremarkable. Biliary ducts: Unremarkable. Pancreas: Unremarkable. Spleen: Unremarkable. Adrenal Glands: Unremarkable. Kidneys and Ureters: Left upper pole renal mass is redemonstrated and is increased in size when compared with the study dated May 16, 2022. This lesion measures 6.7 x 5.4 x 4.0 cm on the current study and previously measured 5.8 x 4.4 by 4.6 cm on the previous study. Stomach and Bowel: Stomach, small bowel loops, and colon are unremarkable. Peritoneum: No abnormal intraperitoneal fluid. No free air. Ventral Wall: No hernia. Abdominal Nodes: There are 2 enlarged left retroperitoneal lymph nodes, 1 of which is unchanged from the prior study, 1 of which is new and measures 1.0 cm in diameter (series 2/image 62). Vessels: Aorta and inferior vena cava are normal in size. There are scattered atheromatous calcifications throughout the aorta and iliac arteries bilaterally. PELVIS: Pelvic Organs: Unremarkable. Bladder: Unremarkable. Pelvic Nodes: No enlarged lymph nodes. Miscellaneous: No inguinal hernias are seen. Bones: Unremarkable. IMPRESSION: 1. Of the left renal mass when compared with the study dated May 16, 2022 consistent with progression of disease. 2. 2 enlarged retroperitoneal lymph nodes. Differential considerations include denia metastasis versus reactive adenopathy. Dictated by: Luda Garcia M.D. on 08/11/2022 at 15:01 Approved by: Luda Garcia M.D. on 08/11/2022 at 15:12
== END ==
PROVIDERS: PCP Internal Medicine; Referring Provider Internal Medicine Medical Oncology; Visit Provider Internal Medicine Medical Oncology
DX: C64.9 Malignant neoplasm of unspecified kidney, except renal pelvis (principal); R59.0 Localized enlarged lymph nodes
CPT/HCPCS: 71260; 74177; Q9967

== ENCOUNTER 2022-10-01 11:21 | Emergency (ER) | payer OTHER, MEDICAID, SELFPAY ==
[2022-02-04 15:29] VITALS: BMI 28.6
[2022-10-01] VITALS (20 sets, daily range): BP systolic 070–232; BP diastolic 77–102; PULSE 59–81; RESP 13–23; TEMP 36.2; O2SAT 96–100; BMI 26.3
--- NOTE | 2022-10-01 11:45 | ED.GENADULT ---
HPI - General Adult General Chief complaint: Hypertension Stated complaint: [facility] by [facility] high BP Time Seen by Provider: 10/01/22 11:30 History of Present Illness HPI narrative: 87-year-old female nonsmoker with history of renal cancer, currently treated by the [facility] [place] receiving chemotherapy, hypertension, hemochromatosis presents with multiple family members in the chief complaint of a mild headache for the past few days. She is had trouble with her blood pressure creeping over 200 for quite some time despite taking her medications as directed. She is currently taking lisinopril 40 mg twice daily and her pressures remain quite high. She is absence of other symptoms such as blurred vision or trouble with speech. She is not dizzy nor weak or lightheaded. She denies chest pain, shortness of breath or cough. She denies abdominal pain, nausea or vomiting. Related Data Home Medications Medication Instructions Recorded Confirmed cholecalciferol (vitamin D3) 25 1,000 unit PO QDAY ##0 08/14/17 08/27/22 mcg (1,000 unit) tablet (Vitamin D3) lisinopril 5 mg tablet 10 mg PO BID ##0 08/14/17 08/27/22 metformin 500 mg tablet 500 mg PO QDAY ##0 08/14/17 08/27/22 (Glucophage) metoprolol succinate 25 mg 25 mg PO QPM ##0 08/14/17 08/27/22 tablet,extended release 24 hr (Toprol XL) multivitamin (Multiple Vitamins 1 tab PO QDAY ##0 08/14/17 08/27/22 tablet) cetirizine 10 mg tablet 10 mg PO QDAYP PRN Allergy 10/16/17 08/27/22 Symptoms ##0 acetaminophen 500 mg tablet 500 mg PO Q6H PRN Pain (Scale 12/31/21 08/27/22 Score 1-3) diphenhydramine HCl 25 mg capsule 25 mg PO TID PRN Itching 03/26/22 08/27/22 (Benadryl) Previous Rx's Medication Instructions Recorded lidocaine-prilocaine 2.5 %-2.5 % 1 applic topical PRN PRN pain #30 04/30/22 topical cream grams cabozantinib 60 mg tablet 60 mg PO DAILY #30 tabs 08/27/22 morphine 15 mg tablet,extended 15 mg PO Q12H #60 tabs 08/27/22 release (MS Contin) ondansetron 4 mg disintegrating 4 mg PO Q8H #30 tabs 09/03/22 tablet hydralazine 10 mg tablet 10 mg PO QID #30 tabs 10/01/22 Allergies Allergy/AdvReac Type Severity Reaction Status Date / Time aspirin [ASPIRIN] Allergy Unknown RASH Verified 02/18/22 11:48 nalbuphine [From NUBAIN] Allergy Unknown CONVULSIONS Verified 02/18/22 11:48 Sulfa (Sulfonamide Allergy Unknown RASH Verified 02/18/22 11:48 Antibiotics) [SULFA (SULFONAMIDE ANTIBIOTICS)] adhesive tape AdvReac Severe Blister Verified 02/18/22 11:50 acetaminophen [From Percocet] AdvReac Intermediate Dizziness Verified 09/02/22 09:19 Latex, Natural Rubber AdvReac Intermediate Blister Verified 02/18/22 12:12 oxycodone [From Percocet] AdvReac Intermediate Dizziness Verified 09/02/22 09:19 Review of Systems Review of Systems Narrative: GENERAL: Denies chills, fatigue, malaise, fever, sweats. HEENT: Denies sinus pain, ear pain, sore throat, difficulty swallowing, dizziness. RESPIRATORY: Denies dyspnea, cough, wheezing, hemoptysis, sputum. CARDIOVASCULAR: Denies chest pain, palpitations, orthopnea, edema, GASTROINTESTINAL: Denies nausea, vomiting, abdominal pain, diarrhea, constipation, melena. : Denies dysuria, frequency, incontinence, hematuria, urinary retention. MUSCULOSKELETAL: denies weakness, joint pain, or bony pain SKIN: Denies rash, skin lesions, or other NEUROLOGIC: see HPI PSYCHIATRIC: No concerning psychosocial issues. 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 Well-developed patient, in mild distress. HEAD: Atraumatic. Normocephalic. EYES: Pupils equal round and reactive. Extraocular motions intact. No scleral icterus. No injection or drainage. ENT: Nose without bleeding, purulent drainage. Throat without erythema, tonsillar hypertrophy or exudate. Airway patent. NECK: Trachea midline. Non tender CARDIOVASCULAR: Regular rate and rhythm without murmurs, gallops, or rubs. RESPIRATORY: Clear to auscultation. Breath sounds equal bilaterally. No wheezes, rales, or rhonchi. GASTROINTESTINAL: Abdomen soft, non-tender, nondistended. EXTREMITIES: No edema or joint tenderness. BACK: Nontender without deformity or crepitance. No flank tenderness. NEURO: AOx3. SKIN: No rash or erythema of visible areas Initial Vital Signs Initial Vital Signs: Vital Signs Temperature 97.1 F L 10/01/22 11:30 Pulse Rate 64 10/01/22 11:30 Respiratory Rate 18 10/01/22 11:30 Blood Pressure 220/95 H 10/01/22 11:30 Pulse Oximetry 99 10/01/22 11:30 Oxygen Delivery Method 10/01/22 11:30 Course Orders Ordered: ED Orders 10/01/22 11:00 Urinalysis and Microscopic Stat Urine Culture Stat 10/01/22 11:44 Complete Blood Count AUTO DIFF Stat Comprehensive Metabolic Panel Stat NT-proBNP (BNP-Adult 18+) Stat Troponin & CK Cardiac Panel Stat Discontinued Medications Heparin Sodium (Porcine) (Heparin 500 Unit/5 Ml Port Flush) 500 unit IV PRN PRN PRN Reason: Flush Last Admin: 10/01/22 17:22 Dose: 500 unit Documented By: ALICIA Hydralazine HCl (Hydralazine 20 Mg/Ml Vial) 10 mg IV NOW ONE Stop: 10/01/22 12:11 Last Admin: 10/01/22 12:18 Dose: 10 mg Documented By: ALICIA Hydralazine HCl (Hydralazine 10 Mg Tablet) 10 mg PO NOW ONE Stop: 10/01/22 15:09 Last Admin: 10/01/22 15:40 Dose: 10 mg Documented By: LYN Reevaluation(s) Reevaluation #1: Patient blood pressure drop from the 220s down to the 170s after initial dose of hydralazine, oral dose ordered Vital Signs Vital signs: Vital Signs - 8 hr 10/01/22 11:30 10/01/22 11:46 10/01/22 12:18 Temperature 97.1 F L Pulse Rate 64 63 64 Respiratory Rate 18 15 Blood Pressure 220/95 H 220/95 H 220/90 H Pulse Oximetry 99 99 Oxygen Delivery Method Room Air 10/01/22 12:00 10/01/22 12:30 10/01/22 12:30 Temperature Pulse Rate 59 L 65 Respiratory Rate 15 15 Blood Pressure 170/77 H Pulse Oximetry 99 100 Oxygen Delivery Method 10/01/22 13:00 10/01/22 13:01 10/01/22 13:01 Temperature Pulse Rate 73 74 Respiratory Rate 13 15 Blood Pressure 201/84 H Pulse Oximetry 100 100 Oxygen Delivery Method 10/01/22 13:30 10/01/22 14:00 10/01/22 14:30 Temperature Pulse Rate 75 74 77 Respiratory Rate 16 23 19 Blood Pressure Pulse Oximetry 100 100 99 Oxygen Delivery Method 10/01/22 14:44 10/01/22 14:45 10/01/22 14:45 Temperature Pulse Rate 60 74 Respiratory Rate 14 Blood Pressure 170/77 H 232/102 H Pulse Oximetry 100 Oxygen Delivery Method 10/01/22 14:56 10/01/22 14:57 10/01/22 14:57 Temperature Pulse Rate 72 73 Respiratory Rate 15 14 Blood Pressure 207/88 H Pulse Oximetry 99 99 Oxygen Delivery Method 10/01/22 15:00 10/01/22 15:40 10/01/22 15:36 Temperature Pulse Rate 75 75 81 Respiratory Rate 15 20 Blood Pressure 207/88 H 188/102 H Pulse Oximetry 100 96 Oxygen Delivery Method 10/01/22 15:47 10/01/22 17:05 10/01/22 17:21 Temperature Pulse Rate 75 70 70 Respiratory Rate 18 Blood Pressure 188/102 H 070/80 170/80 H Pulse Oximetry 98 Oxygen Delivery Method Medical Decision Making Lab Data Labs: Lab Results 10/01/22 Range/Units 11:00 Urine Color Yellow Urine Appearance Slightly cloudy Urine pH 6.5 (4.5-8.0) Ur Specific [place] 1.015 (1.000-1.035) Urine Protein 3+ H (Negative) Urine Glucose (UA) Negative (Negative) g/dL Urine Ketones Negative (NEGATIVE) Urine Occult Blood 3+ H (Negative) Urine Nitrate Negative (Negative) Urine Bilirubin Negative (NEGATIVE) Urine Urobilinogen 0.2 (0.2) E.U./dL Ur Leukocyte Esterase 1+ H (NEGATIVE) Urine RBC 5-10/hpf H (0-5/HPF) Urine WBC 5-10/hpf H (0-5/HPF) Ur Squamous Epith Cells 1-5 /hpf (0-5/HPF) Amorphous Sediment 2+ Urine Bacteria Few (2-10) H (None) Urine Mucus 1+ H (Negative) Ur Culture Indicated? Specimen cultured Urine Dip Bedside Urine Glucose Negative Bedside Urine Bilirubin - Negative Bedside Urine Ketone - Negative Urine Specific [place] 1.015 Bedside Urine Occult Blood + Bedside Urine pH 6.0 Bedside Urine Protein ++ 100 Bedside Urine Urobilinogen - Negative Bedside Urine Nitrite - Negative Bedside Urine Leukocytes + 70 Esterase Point of care testing: Urine Dip Bedside Urine Glucose Negative Bedside Urine Bilirubin - Negative Bedside Urine Ketone - Negative Urine Specific [place] 1.015 Bedside Urine Occult Blood + Bedside Urine pH 6.0 Bedside Urine Protein ++ 100 Bedside Urine Urobilinogen - Negative Bedside Urine Nitrite - Negative Bedside Urine Leukocytes + 70 Esterase Discharge Plan Departure Patient Disposition: Home Clinical Impression: Hypertensive urgency Instructions: DI for High Blood Pressure Activity Restrictions/Additional Instructions: *You have been diagnosed with [elevated blood pressure. As we discussed you responded well to medications administered and I have given you a prescription for the same. Your labs are very reassuring] *What to do: *Please continue to take your regular medications as directed. [x ] New medication prescriptions sent to your pharmacy: [ [facility]] [ ] New medication written as a paper prescription [ ] No new medications given *Please follow up with your primary care provider in 2-3 days, call for an appointment. Let them know you were seen in the Emergency Department and that we ask that you be seen in follow up. We will electronically transmit a record of today's note if your PCP is in our system *If you do not have a primary care provider please contact the [facility] Resource line at [phone]. They will ask some questions about your medical history and help get you set up with a doctor in the community. *Return to Emergency Department if you should have any new, worsening or concerning symptoms, such as [fever greater than 101 F, shaking chills, worsening pain, persistent vomiting or other bothersome symptoms] Prescriptions: New hydralazine 10 mg tablet 10 mg PO QID Qty: 30 0RF No Action metformin [Glucophage] 500 MG tablet 500 mg PO QDAY Qty: 0 multivitamin [Multiple Vitamins] 1 EACH tablet 1 tab PO QDAY Qty: 0 lisinopril 5 MG tablet 10 mg PO BID Qty: 0 metoprolol succinate [Toprol XL] 25 MG tablet extended release 24 hr 25 mg PO QPM Qty: 0 cholecalciferol (vitamin D3) [Vitamin D3] 1,000 UNIT tablet 1,000 unit PO QDAY Qty: 0 cetirizine 10 MG tablet 10 mg PO QDAYP PRN (Reason: Allergy Symptoms) Qty: 0 acetaminophen 500 mg Tablet 500 mg PO Q6H PRN (Reason: Pain (Scale Score 1-3)) diphenhydramine HCl [Benadryl] 25 mg Capsule 25 mg PO TID PRN (Reason: Itching) lidocaine-prilocaine 2.5-2.5 % Cream 1 applic topical PRN PRN (Reason: pain) Qty: 30 3RF Rx Instructions: Apply to the skin over the port at least 1-2 hrs before planned use of the port. Cover the cream with a small piece of plastic wrap and leave in place until the port is accessed. cabozantinib 60 mg Tablet 60 mg PO DAILY Qty: 30 3RF morphine [MS Contin] 15 mg Tablet Extended Release 15 mg PO Q12H Qty: 60 0RF Rx Instructions: take one talbet every 12 hours for pain ondansetron 4 mg Tablet,Disintegrating 4 mg PO Q8H Qty: 30 1RF Referrals: Miroslava Ramires MD [Primary Care Provider] - Visit Report Forms: Patient Portal/API
[2022-10-01] MEDS: HYDRALAZINE 20 MG/ML VIAL 10 MG IV (12:18)
[2022-10-01 12:58] LABS: Bilirubin Urine UA NEGATIVE (NEGATIVE); Color Urine UA YELLOW; Glucose Urine UA NEGATIVE (Negative); Ketones Urine UA NEGATIVE (NEGATIVE); Leukocyte Esterase Urine UA 1+ (NEGATIVE); Nitrite Urine UA NEGATIVE (Negative); Occult Blood Urine UA 3+ (Negative); Protein Urine UA 3+ (Negative); Specific Gravity Urine UA 1.015 (1.000-1.035); Urobilinogen Urine UA 0.2 E.U./dL (0.2)
[2022-10-01 13:02] LABS: Appearance Urine UA Slightly Cloudy; pH Urine UA 6.5 (4.5-8.0)
[2022-10-01 13:08] LABS: Amorphous Sediment Urine 2+; Bacteria Urine Few (2-10); Mucus Urine 1+ (Negative); RBC Urine 5-10/HPF (0-5/HPF); Squamous Epithelial Cell Urine 1-5 /HPF (0-5/HPF); WBC Urine 5-10/HPF (0-5/HPF)
[2022-10-01 13:09] LABS: Culture Indicated Urine Specimen Cultured
[2022-10-01] MEDS: HYDRALAZINE 10 MG TABLET PO (15:40)
== END 2022-10-01 17:33 | disposition home or self-care (01) ==
PROVIDERS: Emergency Provider Emergency Medicine; PCP Internal Medicine
DX: I16.0 Hypertensive urgency (principal); R51.9 Headache, unspecified; C64.2 Malignant neoplasm of left kidney, except renal pelvis; C78.00 Secondary malignant neoplasm of unspecified lung; C79.70 Secondary malignant neoplasm of unspecified adrenal gland; E83.118 Other hemochromatosis
CPT/HCPCS: 36415; 36591; 80053; 81001; 81003; 84156; 85025; 87086; 96374; 99284; J0360; J1642

== ENCOUNTER → 2022-12-11 11:41 | Outpatient (CLI) | payer OTHER, MEDICAID, SELFPAY ==
[2022-02-04 15:29] VITALS: BMI 28.6
--- NOTE | 2022-12-11 11:42 | DI.CT.S_ITS ---
PROCEDURE: CT CHEST ABD PEL W CON INDICATIONS: kidney cancer restaging TECHNIQUE: After the administration of oral and intravenous contrast, axial sections acquired from the supraclavicular neck to the pubic symphysis. Coronal and sagittal reformats were performed. For radiation dose reduction, the following was used: automated exposure control, adjustment of mA and/or kV according to patient size. COMPARISON: [facility], [place], [place] PET CT FUSION WHOLE BODY, 12/25/2021, 10:55. [facility], [place], CT CHEST ABD PEL W CON, 08/11/2022, 12:55. FINDINGS: Image quality: Excellent. CHEST: Lower Neck: No enlarged lymph nodes. Thyroid: Bilateral thyroid nodules are not significantly changed. Axillae: No enlarged lymph nodes. Chest Wall: Right-sided port with the catheter tip at the cavoatrial junction. Lungs and Airways: Left upper lobe pulmonary nodule measuring 0.3 cm, (5/130), unchanged. No new or enlarging pulmonary nodules. Prior PET/CT demonstrated multiple pulmonary metastases. A few areas of distal mucus airway plugging. The central airways are clear. No consolidation. Pleura: No pneumothorax or pleural effusions. Heart: Heart size is normal. No pericardial effusion. Thoracic Vessels: The aorta and pulmonary arteries demonstrate normal size. No central pulmonary embolism. Mediastinum and Latrice: No enlarged lymph nodes. Esophagus: No wall thickening. No hiatal hernia. ABDOMEN: Liver: No focal lesion. Gallbladder: Unremarkable. Biliary ducts: Unremarkable. Pancreas: Tail abuts left kidneys lesion. Spleen: No splenomegaly. Abuts the left kidney lesion. Adrenal Glands: No nodule. Kidneys and Ureters: No right hydronephrosis. Solid and cystic left renal lesion measuring at 7.9 x 5.7 x 5.4 cm, (2/25 and 3/40), previously remeasured 6.7 x 4.7 x 4.3 cm on 08/11/2022. Left kidney inferior pole caliectasis. Stomach and Bowel: Stomach, small bowel loops, and colon are unremarkable. Peritoneum: No abnormal intraperitoneal fluid. No free air. Ventral Wall: No hernia. Abdominal Nodes: Left periaortic node measuring 1.3 cm, (2/56), previously 0.8 cm. Inferior left periaortic node measuring 0.6 cm, (2/68), previously 0.8 cm. Vessels: Aorta and inferior vena cava are normal in size. No filling defect identified in the left renal vein. PELVIS: Pelvic Organs: Unremarkable. Bladder: Unremarkable. Pelvic Nodes: No enlarged lymph nodes. Miscellaneous: No inguinal hernias are seen. Bones: No suspicious lesion. IMPRESSION: 1. No new or enlarging pulmonary nodules. 2. Solid and cystic left renal mass measuring 7.9 cm is increased in size. 3. Small retroperitoneal lymph nodes. 1 of which is increased in slightly size. Dictated by: Mamadou Fung M.D. on 12/11/2022 at 14:21 Approved by: Mamadou Fung M.D. on 12/11/2022 at 14:57
== END ==
PROVIDERS: PCP Internal Medicine; Referring Provider Internal Medicine Medical Oncology; Visit Provider Internal Medicine Medical Oncology
DX: C64.2 Malignant neoplasm of left kidney, except renal pelvis; C78.00 Secondary malignant neoplasm of unspecified lung
CPT/HCPCS: 71260; 74177; Q9967